=== PATIENT | female | born 1965 | race Caucasian/White ===

== ENCOUNTER 2019-01-18 16:09 | Emergency (ER) | payer BC, OTHER ==
--- NOTE | 2019-01-18 16:13 | ERPHSYRPT ---
- History of Present Illness Time Seen by Provider: 01/18/19 16:13 Historian: patient, family Exam Limitations: no limitations Physician History: 53 y/o iddm white female with htn out of her htn meds presents with mild central nonradiating substernal cp. onset this am. pt took one baby asa and no ntg. pt denies n/v/d. denies soa and denies abd pain. pt out of her lisinopril and metoprolol for 2 weeks. 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 Timing/Duration: today Activities at Onset: none Quality: sharpness Location: substernal, central Chest Pain Radiation: no radiation Severity of Pain-Max: mild Severity of Pain-Current: mild Associated Symptoms: denies symptoms Prior Chest Pain/Cardiac Workup: cardiac cath, echocardiography Nitro Today/Relief: no nitro taken today Aspirin Treatment Today: 81 mg x 1, provided at home Allergies/Adverse Reactions: No Known Drug Allergies Allergy (Unverified 01/18/19 16:23) Home Medications: Aspirin 81 gm Chew [Baby Aspirin 81 mg Chew] 81 mg DAILY 01/18/19 [History ] Insulin Lispro [Humalog] 1 unit DAILY 01/18/19 [History] Lisinopril 5 mg DAILY 01/18/19 [History] Metoprolol Succinate [Toprol Xl] 25 mg DAILY 01/18/19 [History] Ticagrelor [Brilinta] 60 mg DAILY 01/18/19 [History] - Review of Systems Constitutional: No Symptoms Eyes: No Symptoms Ears, Nose, & Throat: No Symptoms Respiratory: No Symptoms Cardiac: Chest Pain (mild) Abdominal/Gastrointestinal: No Symptoms Genitourinary Symptoms: No Symptoms Musculoskeletal: No Symptoms Skin: No Symptoms Neurological: No Symptoms Psychological: No Symptoms Endocrine: No Symptoms Hematologic/Lymphatic: No Symptoms Immunological/Allergic: No Symptoms All Other Systems: Reviewed and Negative - Past Medical History Pertinent Past Medical History: Yes Neurological History: No Pertinent History ENT History: No Pertinent History Cardiac History: Hypertension Respiratory History: No Pertinent History Endocrine Medical History: No Pertinent History Musculoskeletal History: No Pertinent History GI Medical History: No Pertinent History History: No Pertinent History Psycho-Social History: No Pertinent History Female Reproductive Disorders: No Pertinent History - Past Surgical History Past Surgical History: No Neuro Surgical History: No Pertinent History Cardiac: No Pertinent History Respiratory: No Pertinent History Gastrointestinal: No Pertinent History Genitourinary: No Pertinent History Musculoskeletal: No Pertinent History - Nursing Vital Signs Nursing Vital Signs: Initial Vital Signs Temperature 98.1 F 01/18/19 16:12 Pulse Rate 100 H 01/18/19 16:12 Respiratory Rate 14 01/18/19 16:12 Blood Pressure 154/81 01/18/19 16:12 O2 Sat by Pulse Oximetry 99 01/18/19 16:12 Pain Scale Pain Intensity 4 - Physical Exam General Appearance: no apparent distress, alert, anxiety Eye Exam: PERRL/EOMI Ears, Nose, Throat Exam: normal ENT inspection, moist mucous membranes Neck Exam: normal inspection, non-tender, supple, full range of motion Respiratory Exam: normal breath sounds, chest tenderness, lungs clear, airway intact, No respiratory distress Cardiovascular Exam: regular rate/rhythm, normal heart sounds, normal peripheral pulses Gastrointestinal/Abdomen Exam: soft, normal bowel sounds, No tenderness Pelvic Exam: not done Rectal Exam: not done Extremity Exam: normal inspection, normal range of motion, pelvis stable Neurologic Exam: alert, oriented x 3, cooperative, microcomputer support specialist II-XII nml as tested Skin Exam: normal color, warm, dry Lymphatic Exam: No adenopathy SpO2 Interpretation: normal O2 Delivery: Room Air - Course EKG Interpreted by Me: RATE (92), Sinus Rhythm, NORMAL AXIS, NORMAL INTERVALS, NORMAL QRS, Other (no comparison ekg) Ordered Tests: Active Orders 24 hr Category Date Time Status Environmental Geologist STAT Care 01/18/19 16:27 Active EKG-ER Only STAT Care 01/18/19 16:27 Active IV Insertion STAT Care 01/18/19 16:27 Active Pulse Oximetry (ED) STAT Care 01/18/19 16:27 Active CHEST 1 VIEW (PORTABLE) Stat Exams 01/18/19 16:27 Taken CBC W DIFF Stat Lab 01/18/19 16:23 Completed CMP Stat Lab 01/18/19 17:00 Completed D-DIMER QUANTITATION Stat Lab 01/18/19 17:00 Completed NT PRO BNP Stat Lab 01/18/19 17:00 Completed PROTIME WITH INR Stat Lab 01/18/19 17:00 Completed TROPONIN Q3H Lab 01/18/19 17:00 Completed TROPONIN Q3H Lab 01/18/19 19:30 Ordered TROPONIN Q3H Lab 01/18/19 22:30 Ordered TROPONIN Q3H Lab 01/19/19 01:30 Ordered TROPONIN Q3H Lab 01/19/19 04:30 Ordered Medication Summary Discontinued Medications Generic Name Dose Route Start Last Admin Trade Name Junaid PRN Reason Stop Dose Admin Aspirin 243 mg 01/18/19 16:27 01/18/19 16:43 Baby Aspirin 81 Mg Chew PO 01/18/19 16:28 243 mg STAT ONE Administration Aspirin Confirm 01/18/19 16:40 Baby Aspirin 81 Mg Chew Administered 01/18/19 16:41 Dose 243 mg .ROUTE .STK-MED ONE Lab/Rad Data: Laboratory Result Diagrams 01/18/19 16:23 01/18/19 17:00 Laboratory Results 01/18/19 01/18/19 01/18/19 Range/Units 17:00 17:00 17:00 WBC (4.0-10.5) K/mm3 RBC (4.1-5.4) M/mm3 Hgb (12.0-16.0) gm/dl Hct (35-47) % MCV (78-100) fl MCH (26-32) pg MCHC (32-36) g/dl RDW (11.5-14.0) % Plt Count (150-450) K/mm3 MPV (6-9.5) fl Gran % (36.0-66.0) % Eos # (Auto) (0-0.5) Absolute Lymphs (auto) (1.0-4.6) Absolute Monos (auto) (0.0-1.3) Lymphocytes % (24.0-44.0) % Monocytes % (0.0-12.0) % Eosinophils % (0.00-5.0) % Basophils % (0.0-0.4) % Absolute Granulocytes (1.4-6.9) Basophils # (0-0.4) PT 10.3 (9.95-12.35) SECONDS INR 0.91 (0.8-3.0) D-Dimer 453 (215-500) ng/mL Sodium 138 (137-145) mmol/L Potassium 4.4 (3.5-5.1) mmol/L Chloride 104 (98-107) mmol/L Carbon Dioxide 25 (22-30) mmol/L Anion Gap 13.9 (5-15) MEQ/L BUN 21 H (7-17) mg/dL Creatinine 0.58 (0.52-1.04) mg/dL Estimated GFR > 60.0 ML/MIN Glucose 323 H (74-106) mg/dL Calcium 10.3 H (8.4-10.2) mg/dL Total Bilirubin 0.30 (0.2-1.3) mg/dL AST 34 (14-36) U/L ALT 33 (0-35) U/L Alkaline Phosphatase 152 H (38-126) U/L Troponin I < 0.012 (0.000-0.034) ng/mL NT-Pro-B Natriuret Pep 312 (0-900) pg/mL Serum Total Protein 7.3 (6.3-8.2) g/dL Albumin 4.2 (3.5-5.0) g/dL 01/18/19 Range/Units 16:23 WBC 7.3 (4.0-10.5) K/mm3 RBC 4.48 (4.1-5.4) M/mm3 Hgb 13.9 (12.0-16.0) gm/dl Hct 41.0 (35-47) % MCV 91.5 (78-100) fl MCH 31.0 (26-32) pg MCHC 33.9 (32-36) g/dl RDW 13.2 (11.5-14.0) % Plt Count 246 (150-450) K/mm3 MPV 10.9 H (6-9.5) fl Gran % 62.0 (36.0-66.0) % Eos # (Auto) 0.22 (0-0.5) Absolute Lymphs (auto) 1.81 (1.0-4.6) Absolute Monos (auto) 0.72 (0.0-1.3) Lymphocytes % 24.7 (24.0-44.0) % Monocytes % 9.8 (0.0-12.0) % Eosinophils % 3.0 (0.00-5.0) % Basophils % 0.5 (0.0-0.4) % Absolute Granulocytes 4.55 (1.4-6.9) Basophils # 0.04 (0-0.4) PT (9.95-12.35) SECONDS INR (0.8-3.0) D-Dimer (215-500) ng/mL Sodium (137-145) mmol/L Potassium (3.5-5.1) mmol/L Chloride (98-107) mmol/L Carbon Dioxide (22-30) mmol/L Anion Gap (5-15) MEQ/L BUN (7-17) mg/dL Creatinine (0.52-1.04) mg/dL Estimated GFR ML/MIN Glucose (74-106) mg/dL Calcium (8.4-10.2) mg/dL Total Bilirubin (0.2-1.3) mg/dL AST (14-36) U/L ALT (0-35) U/L Alkaline Phosphatase (38-126) U/L Troponin I (0.000-0.034) ng/mL NT-Pro-B Natriuret Pep (0-900) pg/mL Serum Total Protein (6.3-8.2) g/dL Albumin (3.5-5.0) g/dL - Progress Air Movement: good Progress Note: 01/18/19 18:38 no acute process on cxr pt states she is much better. no cp. will give pt rx for one week lisinopril and metoprolol. Blood Culture(s) Obtained: No Antibiotics given: No Counseled pt/family regarding: lab results, diagnosis, need for follow-up, rad results - Departure Departure Disposition: Home Clinical Impression: Chest pain, Hyperglycemia Condition: Stable Critical Care Time: No Referrals: DIANA SUTTON [Primary Care Provider] - Additional Instructions: monitor and treat your blood glucose closely. follow up with your prescribing doctors on monday01/21/19 for further management Prescriptions: Lisinopril 5 mg [Zestril 5 MG] 5 mg PO DAILY #10 tablet Metoprolol Succinate 25 mg Xl* [Toprol-Xl 25MG Tablets] 25 mg PO DAILY #10 tab
[2019-01-18] MEDS ORDERED: BABY ASPIRIN 81 MG CHEW PO ONE (16:27)
[2019-01-18] MEDS ORDERED: BABY ASPIRIN 81 MG CHEW ONE (16:40)
[2019-01-18 17:39] LABS: INR 0.91 (0.8-3.0); PROTIME 10.3 SECONDS (9.95-12.35)
[2019-01-18 17:40] LABS: BASOPHIL % 0.5 % (0.0-0.4); Basophil (Absolute #) 0.04 (0-0.4); Eosinophil (Absolute #) 0.22 (0-0.5); Granulocyte Absolute (ANC) 4.55 (1.4-6.9); Hemoglobin 13.9 gm/dl (12.0-16.0); Lymphocyte (Absolute #) 1.81 (1.0-4.6); Lymphocytes % 24.7 % (24.0-44.0); Mean Cell Volume 91.5 fl (78-100); Mean Corpuscular Hgb Concent. 33.9 g/dl (32-36); Mean Platelet Volume 10.9 fl (6-9.5); Monocyte (Absolute #) 0.72 (0.0-1.3); Monocytes % 9.8 % (0.0-12.0); Platelet Count 246 K/mm3 (150-450); Red Blood Count 4.48 M/mm3 (4.1-5.4); Red Cell Distribution Width 13.2 % (11.5-14.0); White Blood Count 7.3 K/mm3 (4.0-10.5)
[2019-01-18 17:53] LABS: ALBUMIN 4.2 g/dL (3.5-5.0); ALKALINE PHOSPHATASE 152 U/L (38-126); ANION GAP 13.9 MEQ/L (5-15); BLOOD UREA NITROGEN 21 mg/dL (7-17); CHLORIDE 104 mmol/L (98-107); Calcium 10.3 mg/dL (8.4-10.2); Carbon Dioxide 25 mmol/L (22-30); Creatinine 1 0.58 mg/dL (0.52-1.04); Glucose 323 mg/dL (74-106); NT PRO BNP 312 pg/mL (0-900); Potassium 4.4 mmol/L (3.5-5.1); SGOT/AST 34 U/L (14-36); SGPT/ALT 33 U/L (0-35); SODIUM 138 mmol/L (137-145); Total Protein 7.3 g/dL (6.3-8.2)
[2019-01-18 19:01] VITALS: BP 136/71; PULSE 96; O2SAT 98
--- NOTE | 2019-01-18 22:54 | XRAY ---
Indication: Chest pain. Comparison: September 25, 2006. Portable chest demonstrates new multiple coronary stent grafts and aortic knob calcification. Remaining heart, lungs, and bony thorax unremarkable.
== END 2019-01-18 19:05 | disposition home or self-care (01) ==
LOC: ED 16:09
DX: R07.9 Chest pain, unspecified (principal); R73.9 Hyperglycemia, unspecified
CPT/HCPCS: 36000; 36415; 71045; 80053; 83880; 84484; 85025; 85379; 85610; 93005; 93041; 94760; 99284; A9270-GY

== ENCOUNTER 2020-01-31 14:00 | Emergency (ER) | payer OTHER ==
[2020-01-31] MEDS ORDERED: D50W 50 ml Abboject IV ONE ×2 (14:16→14:25)
[2020-01-31] MEDS ORDERED: Dextrose 5% -0.45 NaCl 1000 ML 1,000 ML IV ONE (14:24)
[2020-01-31 14:28] LABS: Lactic Acid 1.7 (0.4-2.0)
[2020-01-31] MEDS ORDERED: Dextrose 5% -0.45 NaCl 1000 ML 1,000 ML IV SCH (14:30)
--- NOTE | 2020-01-31 14:43 | ERPHSYRPT ---
- History of Present Illness Time Seen by Provider: 01/31/20 14:41 Source: patient Exam Limitations: no limitations Patient Subjective Stated Complaint: hypoglycemia Triage Nursing Assessment: pt to ED c/o hypoglycemia. states she grabbed wrong insulin pen this morning 0730 and gave self 32 units of insulin. pt reports blood sugars ranging 39-60s all day. 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 fsbs on arrival 60. pt denies hypoglycemic sx at this time. reports she has been taking sugar tabs and drinking mountain dew today. Physician History: Patient is an insulin-dependent diabetic who takes 32 units of long-acting insulin and then a sliding scale for rapid insulin short acting. Today by mistake she took 32 units of her short acting at 730. She has been drinking Mountain Dew's taking sugar tablets but feels as if her sugar remains low. Timing/Duration: today Severity: moderate Modifying Factors: Improves With: eating Associated Symptoms: weakness Allergies/Adverse Reactions: No Known Drug Allergies Allergy (Verified 01/31/20 14:21) Home Medications: Aspirin 81 gm Chew [Baby Aspirin 81 mg Chew] 81 mg DAILY 01/18/19 [History] Insulin Lispro [Humalog] 1 unit SQ DAILY 01/18/19 [History] Ticagrelor [Brilinta] 60 mg PO DAILY 01/18/19 [History] lisinopriL [Lisinopril] 5 mg PO DAILY 01/18/19 [History] Atorvastatin Calcium 80 mg PO DAILY 01/31/20 [History] Ranolazine [Ranolazine ER] 2,000 mg PO DAILY 01/31/20 [History] Hx Tetanus, Diphtheria Vaccination/Date Given: Yes Hx Influenza Vaccination/Date Given: Yes Hx Pneumococcal Vaccination/Date Given: Yes Immunizations Up to Date: Yes Travel Risk - International Travel Have you traveled outside of the country in past 3 weeks: No - Coronavirus Screening Are you exhibiting any of the following symptoms?: No Close contact with a COVID-19 positive Pt in past 14-21 Days: No - Review of Systems Constitutional: Weakness, No Fever, No Chills Eyes: No Symptoms Ears, Nose, & Throat: No Symptoms Respiratory: No Cough, No Dyspnea Cardiac: No Chest Pain, No Edema, No Syncope Abdominal/Gastrointestinal: No Abdominal Pain, No Nausea, No Vomiting, No Diarrhea Genitourinary Symptoms: No Dysuria Musculoskeletal: No Back Pain, No Neck Pain Skin: No Rash Neurological: No Dizziness, No Focal Weakness, No Sensory Changes Psychological: No Symptoms Endocrine: No Symptoms All Other Systems: Reviewed and Negative - Past Medical History Pertinent Past Medical History: Yes Neurological History: No Pertinent History ENT History: No Pertinent History Cardiac History: Coronary Artery Disease, Hypertension, Myocardial Infarction (ND), Other Respiratory History: No Pertinent History Endocrine Medical History: Diabetes Type I Musculoskeletal History: No Pertinent History GI Medical History: No Pertinent History History: No Pertinent History Psycho-Social History: No Pertinent History Female Reproductive Disorders: No Pertinent History Other Medical History: 8 cardiac stents stents, 6 MIs - September 2019. - Past Surgical History Past Surgical History: Yes Neuro Surgical History: No Pertinent History Cardiac: Cardiac Stent Respiratory: No Pertinent History Gastrointestinal: No Pertinent History Genitourinary: No Pertinent History Musculoskeletal: No Pertinent History Female Surgical History: Hysterectomy, Section - Social History Smoking Status: Current every day smoker How long have you smoked: years Exposure to second hand smoke: Yes Drug Use: none Patient Lives Alone: Yes - Female History Hx Now: No - Nursing Vital Signs Nursing Vital Signs: Initial Vital Signs Pulse Rate 80 01/31/20 15:18 Respiratory Rate 18 01/31/20 15:18 Blood Pressure 116/59 01/31/20 15:18 O2 Sat by Pulse Oximetry 99 01/31/20 15:18 Pain Scale Pain Intensity 0 - Physical Exam General Appearance: no apparent distress, alert Eye Exam: PERRL/EOMI, eyes nml inspection Ears, Nose, Throat Exam: normal ENT inspection, TMs normal, pharynx normal, moist mucous membranes Neck Exam: normal inspection, non-tender, supple, full range of motion Respiratory Exam: normal breath sounds, lungs clear, No respiratory distress Cardiovascular Exam: regular rate/rhythm, normal heart sounds, normal peripheral pulses Gastrointestinal/Abdomen Exam: soft, normal bowel sounds, No tenderness, No mass Back Exam: normal inspection, normal range of motion, No CVA tenderness, No vertebral tenderness Extremity Exam: normal inspection, normal range of motion, pelvis stable Neurologic Exam: alert, oriented x 3, cooperative, normal mood/affect, nml ce rebellar function, nml station & gait, sensation nml, No motor deficits Skin Exam: normal color, warm, dry, No rash Lymphatic Exam: No adenopathy SpO2 Interpretation: normal O2 Delivery: Room Air - Course Nursing assessment & vital signs reviewed: Yes EKG Interpreted by Me: RATE (84), Sinus Rhythm, NORMAL AXIS, NORMAL INTERVALS, N ORMAL QRS, Non-specific ST Changes, Other (Possible left atrial enlargement) Ordered Tests: Active Orders 24 hr Category Date Time Status EKG-ER Only STAT Care 01/31/20 14:16 Active CBC W DIFF Stat Lab 01/31/20 14:20 Completed CMP Stat Lab 01/31/20 14:20 Completed Glucose,Critical Care Urgent Lab 01/31/20 14:16 Completed Lactic Acid Urgent Lab 01/31/20 14:16 Completed MAGNESIUM Stat Lab 01/31/20 14:20 Completed UA W/RFX UR CULTURE Stat Lab 01/31/20 14:22 Ordered Medication Summary Generic Name Dose Route Start Last Admin Trade Name Freq PRN Reason Stop Dose Admin Dextrose/Sodium Chloride 1,000 mls @ 100 mls/hr 01/31/20 14:30 01/31/20 14:26 Dextrose 5% -0.45 Nacl 1000 Ml IV 03/01/20 14:29 100 mls/hr .Q10H ISIDRO Administration Discontinued Medications Generic Name Dose Route Start Last Admin Trade Name Freq PRN Reason Stop Dose Admin Dextrose 50 ml 01/31/20 14:16 01/31/20 14:26 D50w 50 Ml Abboject IV 01/31/20 14:17 50 ml STAT ONE Administration Dextrose Confirm 01/31/20 14:25 D50w 50 Ml Abboject Administered 01/31/20 14:26 Dose 50 ml IV .STVeeker-MED ONE Lab/Rad Data: Laboratory Result Diagrams 01/31/20 14:20 01/31/20 14:20 Laboratory Results 01/31/20 01/31/20 01/31/20 Range/Units 14:20 14:20 14:16 WBC 8.7 (4.0-10.5) K/mm3 RBC 4.66 (4.1-5.4) M/mm3 Hgb 14.2 (12.0-16.0) gm/dl Hct 43.0 (35-47) % MCV 92.3 (78-100) fl MCH 30.5 (26-32) pg MCHC 33.0 (32-36) g/dl RDW 13.6 (11.5-14.0) % Plt Count 260 (150-450) K/mm3 MPV 10.6 (7.5-11.0) fl Gran % 60.4 (36.0-66.0) % Eos # (Auto) 0.41 (0-0.5) Absolute Lymphs (auto) 2.07 (1.0-4.6) Absolute Monos (auto) 0.90 (0.0-1.3) Lymphocytes % 23.9 L (24.0-44.0) % Monocytes % 10.4 (0.0-12.0) % Eosinophils % 4.7 (0.00-5.0) % Basophils % 0.6 (0.0-0.4) % Absolute Granulocytes 5.24 (1.4-6.9) Basophils # 0.05 (0-0.4) Glucose 62 L 64 L (70-110) Sodium 137 (137-145) mmol/L Potassium 3.3 L (3.5-5.1) mmol/L Chloride 100 (98-107) mmol/L Carbon Dioxide 28 (22-30) mmol/L Anion Gap 12.3 (5-15) MEQ/L BUN 13 (7-17) mg/dL Creatinine 0.66 (0.52-1.04) mg/dL Estimated GFR > 60.0 ML/MIN Lactic Acid 1.7 (0.4-2.0) Calcium 10.0 (8.4-10.2) mg/dL Magnesium 1.9 (1.6-2.3) mg/dL Total Bilirubin 0.50 (0.2-1.3) mg/dL AST 27 (14-36) U/L ALT 22 (0-35) U/L Alkaline Phosphatase 109 (38-126) U/L Serum Total Protein 7.7 (6.3-8.2) g/dL Albumin 4.6 (3.5-5.0) g/dL - Progress Progress: improved - Departure Departure Disposition: Home Clinical Impression: Hypoglycemia Condition: Stable Critical Care Time: No Instructions: Low Blood Sugar, Adult (DC)
[2020-01-31 15:04] LABS: Absolute Neutrophil Ct (ANC) 5.24 (1.4-6.9); BASOPHIL % 0.6 % (0.0-0.4); Basophil (Absolute #) 0.05 (0-0.4); Eosinophil % 4.7 % (0.00-5.0); Eosinophil (Absolute #) 0.41 (0-0.5); Hemoglobin 14.2 gm/dl (12.0-16.0); Lymphocyte (Absolute #) 2.07 (1.0-4.6); Lymphocytes % 23.9 % (24.0-44.0); Mean Cell Volume 92.3 fl (78-100); Mean Corpuscular Hemoglobin 30.5 pg (26-32); Mean Platelet Volume 10.6 fl (7.5-11.0); Monocytes % 10.4 % (0.0-12.0); Neutrophil % 60.4 % (36.0-66.0); Platelet Count 260 K/mm3 (150-450); Red Blood Count 4.66 M/mm3 (4.1-5.4); Red Cell Distribution Width 13.6 % (11.5-14.0); White Blood Count 8.7 K/mm3 (4.0-10.5)
[2020-01-31 15:12] LABS: ALBUMIN 4.6 g/dL (3.5-5.0); ALKALINE PHOSPHATASE 109 U/L (38-126); ANION GAP 12.3 MEQ/L (5-15); BLOOD UREA NITROGEN 13 mg/dL (7-17); CHLORIDE 100 mmol/L (98-107); Carbon Dioxide 28 mmol/L (22-30); Creatinine 1 0.66 mg/dL (0.52-1.04); EST GLOMERULAR FILTRATION RATE > 60.0 ML/MIN; Glucose 62 mg/dL (74-106); MAGNESIUM 1.9 mg/dL (1.6-2.3); Potassium 3.3 mmol/L (3.5-5.1); SGOT/AST 27 U/L (14-36); SGPT/ALT 22 U/L (0-35); SODIUM 137 mmol/L (137-145); Total Protein 7.7 g/dL (6.3-8.2)
[2020-01-31 16:11] LABS: Appearance CLEAR (CLEAR); Bacteria RARE /HPF (NEGATIVE); Bilirubin NEGATIVE (NEGATIVE); Blood NEGATIVE Ery/ul (0-5); Glucose NEGATIVE (NEGATIVE); Ketones NEGATIVE (NEGATIVE); Leukocyte Esterase SMALL (NEGATIVE); Nitrite NEGATIVE (NEGATIVE); Protein,Urine Dip NEGATIVE (Negative); Specific Gravity 1.003 (1.005-1.025); Urobilinogen NEGATIVE mg/dL (0-1)
[2020-01-31 16:16] VITALS: BP 133/63
[2020-01-31 16:30] VITALS: PULSE 76; O2SAT 99
== END 2020-01-31 16:30 | disposition home or self-care (01) ==
LOC: ED 14:00
DX: E10.649 Type 1 diabetes mellitus with hypoglycemia without coma (principal); I10 Essential (primary) hypertension; I25.2 Old myocardial infarction
CPT/HCPCS: 36000; 36415; 80053; 81001; 82947; 83605; 83735; 85025; 93005; 96365; 96366; 96374; 99284

== ENCOUNTER 2020-06-24 06:14 | Observation (INO) | payer OTHER ==
--- NOTE | 2020-06-24 06:36 | ERPHSYRPT ---
<JULIA ORO - Last Filed: 06/24/20 06:59> - History of Present Illness Time Seen by Provider: 06/24/20 06:34 Historian: patient Exam Limitations: no limitations Patient Subjective Stated Complaint: pt states while sitting up drinking coffee she began to have rt side chest pain radiating to rt neck and jaw. states she was sweaty and had fluttering in her chest during the worst of the chest pain. states pain now is 1/10 and only in her rt jaw at this time. describes pain as a "huge dolores horse." Triage Nursing Assessment: pt alert and oriented, answers questions approp. skin warm and dry. arrive per ambulance and transfers to stretcher per self with no difficulty. respirations nonlabored with lungs cta. heart rate 90 on moniotr, sinus rhythm. peripheral pulses wnl. Physician History: Patient is a 54-year-old female type I diabetic, smoker, with 8 cardiac stents presents to our ED with complaints of chest pain started about 1 hour prior to arrival. Patient was at home drinking her coffee when the pain started. Patient describes chest pain as a charley horse sensation on the right side of her chest that radiates to her right jaw. Pain was constant. Pain was associated with diaphoresis. No vomiting. Symptoms were constant. Patient called 911. Patient received nitro and aspirin prior to arrival. Patient states her pain significantly improved after administration of nitroglycerin. Pain currently rated 1 out of 10. No associated trauma. No fever. Symptoms are mild to moderate in intensity. No specific worsening or improving factors. Patient voices no other complaints concerns at this time. Patient has been taking all medications as prescribed. Timing/Duration: today Activities at Onset: none Quality: aching Location: substernal Chest Pain Radiation: neck Severity of Pain-Max: moderate Severity of Pain-Current: mild Modifying Factors: Improves With: nitroglycerin Associated Symptoms: palpitations, diaphoresis Prior Chest Pain/Cardiac Workup: cardiac cath Nitro Today/Relief: 0.4 mg x 3 Aspirin Treatment Today: 81 mg x 4 Allergies/Adverse Reactions: No Known Drug Allergies Allergy (Verified 06/24/20 06:42) Home Medications: Aspirin 81 gm Chew [Baby Aspirin 81 mg Chew] 81 mg DAILY 01/18/19 [History] Insulin Lispro [Humalog] 1 unit SQ TID 01/18/19 [History] Atorvastatin Calcium 80 mg PO DAILY 01/31/20 [History] Ranolazine [Ranolazine ER] 2,000 mg PO DAILY 01/31/20 [History] Insulin Glargine,Hum.rec.anlog [Basaglar Delroyikpen U-100] 40 unit SQ DAILY 06/24/20 [History] Isosorbide Mononitrate 20 mg [monoKET 20 MG] 20 mg PO BID 06/24/20 [History] Hx Tetanus, Diphtheria Vaccination/Date Given: Yes Hx Influenza Vaccination/Date Given: Yes Hx Pneumococcal Vaccination/Date Given: Yes Immunizations Up to Date: Yes Travel Risk - International Travel Have you traveled outside of the country in past 3 weeks: No - Coronavirus Screening Are you exhibiting any of the following symptoms?: No Close contact with a COVID-19 positive Pt in past 14-21 Days: No - Review of Systems Constitutional: No Symptoms, No Fever, No Chills Eyes: No Symptoms Ears, Nose, & Throat: No Symptoms Respiratory: No Symptoms, No Cough, No Dyspnea Cardiac: No Symptoms, No Chest Pain, No Edema, No Syncope Abdominal/Gastrointestinal: No Symptoms, No Abdominal Pain, No Nausea, No Vomiting, No Diarrhea Genitourinary Symptoms: No Symptoms, No Dysuria Musculoskeletal: No Symptoms, No Back Pain, No Neck Pain Skin: No Symptoms, No Rash Neurological: No Symptoms, No Dizziness, No Focal Weakness, No Sensory Changes Psychological: No Symptoms Endocrine: No Symptoms Hematologic/Lymphatic: No Symptoms Immunological/Allergic: No Symptoms All Other Systems: Reviewed and Negative - Past Medical History Pertinent Past Medical History: Yes Neurological History: No Pertinent History ENT History: No Pertinent History Cardiac History: Coronary Artery Disease, Hypertension, Myocardial Infarction (GA), Other Respiratory History: No Pertinent History Endocrine Medical History: Diabetes Type I Musculoskeletal History: No Pertinent History GI Medical History: No Pertinent History History: No Pertinent History Psycho-Social History: No Pertinent History Female Reproductive Disorders: No Pertinent History Other Medical History: 8 cardiac stents stents, 6 MIs - September 2019. - Past Surgical History Past Surgical History: Yes Neuro Surgical History: No Pertinent History Cardiac: Cardiac Stent Respiratory: No Pertinent History Gastrointestinal: No Pertinent History Genitourinary: No Pertinent History Musculoskeletal: No Pertinent History Female Surgical History: Hysterectomy, Section - Social History Smoking Status: Current every day smoker How long have you smoked: 25yrs Exposure to second hand smoke: No Drug Use: none Patient Lives Alone: Yes - Female History Hx Last Menstrual Period: hyster - Physical Exam General Appearance: no apparent distress, alert Eye Exam: PERRL/EOMI, eyes nml inspection Ears, Nose, Throat Exam: normal ENT inspection, moist mucous membranes Neck Exam: normal inspection, non-tender, supple, full range of motion Respiratory Exam: normal breath sounds, lungs clear, No respiratory distress Cardiovascular Exam: regular rate/rhythm, normal heart sounds Gastrointestinal/Abdomen Exam: soft, No tenderness, No mass Back Exam: normal inspection, No CVA tenderness, No vertebral tenderness Extremity Exam: normal inspection, normal range of motion Neurologic Exam: alert, oriented x 3, cooperative, normal mood/affect, sensation nml, No motor deficits Skin Exam: normal color, warm, dry SpO2 Interpretation: normal SpO2: 100 O2 Delivery: Room Air - Course Nursing assessment & vital signs reviewed: Yes EKG Interpreted by Me: RATE (89), Sinus Rhythm, NORMAL AXIS, NORMAL INTERVALS - Progress Progress: improved Air Movement: fair Progress Note: 06/24/20 07:[address] Torres at 0700. Imaging and labs pending. Dr. Torres will make final disposition. Blood Culture(s) Obtained: No Antibiotics given: No Counseled pt/family regarding: lab results, diagnosis - Departure Clinical Impression: ACS (acute coronary syndrome) Condition: Stable Critical Care Time: No Referrals: DOCTOR,NO FAMILY [Primary Care Provider] - <NORBERTO TORRES - Last Filed: 06/24/20 08:18> - Nursing Vital Signs Nursing Vital Signs: Initial Vital Signs Pulse Rate 98 H 06/24/20 06:16 Respiratory Rate 16 06/24/20 06:16 Blood Pressure 154/84 06/24/20 06:16 O2 Sat by Pulse Oximetry 100 06/24/20 06:16 Pain Scale Pain Intensity 1 Ordered Tests: Active Orders 24 hr Category Date Time Status Natural Fabricator STAT Care 06/24/20 06:32 Active EKG-ER Only STAT Care 06/24/20 06:31 Active IV Insertion STAT Care 06/24/20 06:31 Active CHEST 1 VIEW (PORTABLE) Stat Exams 06/24/20 06:32 Taken CBC W DIFF Stat Lab 06/24/20 06:55 Completed CMP Stat Lab 06/24/20 06:55 Completed MAGNESIUM Stat Lab 06/24/20 06:55 Completed NT PRO BNP Stat Lab 06/24/20 06:55 Completed TROPONIN Q3H Lab 06/24/20 06:55 Completed TROPONIN Q3H Lab 06/24/20 09:45 Ordered TROPONIN Q3H Lab 06/24/20 12:45 Ordered TROPONIN Q3H Lab 06/24/20 15:45 Ordered TROPONIN Q3H Lab 06/24/20 18:45 Ordered UA W/RFX UR CULTURE Stat Lab 06/24/20 06:32 Ordered Transfer Order Routine Transfer 06/24/20 Ordered Lab/Rad Data: Laboratory Result Diagrams 06/24/20 06:55 06/24/20 06:55 Laboratory Results 06/24/20 06/24/20 06/24/20 Range/Units 06:55 06:55 06:55 WBC 7.1 (4.0-10.5) K/mm3 RBC 4.44 (4.1-5.4) M/mm3 Hgb 13.2 (12.0-16.0) gm/dl Hct 40.5 (35-47) % MCV 91.2 (78-100) fl MCH 29.7 (26-32) pg MCHC 32.6 (32-36) g/dl RDW 13.5 (11.5-14.0) % Plt Count 285 (150-450) K/mm3 MPV 9.5 (7.5-11.0) fl Gran % 62.3 (36.0-66.0) % Eos # (Auto) 0.14 (0-0.5) Absolute Lymphs (auto) 1.62 (1.0-4.6) Absolute Monos (auto) 0.86 (0.0-1.3) Lymphocytes % 22.9 L (24.0-44.0) % Monocytes % 12.2 H (0.0-12.0) % Eosinophils % 2.0 (0.00-5.0) % Basophils % 0.6 (0.0-0.4) % Absolute Granulocytes 4.40 (1.4-6.9) Basophils # 0.04 (0-0.4) Sodium 134 L (137-145) mmol/L Potassium 4.9 (3.5-5.1) mmol/L Chloride 99 (98-107) mmol/L Carbon Dioxide 28 (22-30) mmol/L Anion Gap 11.9 (5-15) MEQ/L BUN 18 H (7-17) mg/dL Creatinine 0.66 (0.52-1.04) mg/dL Estimated GFR > 60.0 ML/MIN Glucose 142 H (74-106) mg/dL Calcium 9.7 (8.4-10.2) mg/dL Magnesium 1.6 (1.6-2.3) mg/dL Total Bilirubin 0.40 (0.2-1.3) mg/dL AST 25 (14-36) U/L ALT 22 (0-35) U/L Alkaline Phosphatase 110 (38-126) U/L Troponin I < 0.012 (0.000-0.034) ng/mL NT-Pro-B Natriuret Pep 178 (0-900) pg/mL Serum Total Protein 6.7 (6.3-8.2) g/dL Albumin 3.9 (3.5-5.0) g/dL - Progress Progress: re-examined Air Movement: good Progress Note: 06/24/20 08:16 Patient is checked out to me at shift change from Dr. Oro with pending work-up. Patient presented with chest pain which started almost an hour prior to arrival. Patient is given aspirin and nitro by EMS, on my evaluation patient is chest pain-free. EKG did not show any acute ST elevations. Has negative initial troponins. Chest x-ray did not show any acute cardiopulmonary findings. Patient has history of type 1 diabetes mellitus and CAD with multiple stenting and hyperlipidemia. Patient has a high heart score, discussed with Dr. Ambriz and patient is being admitted for observation for chest pain rule out GA/ACS. 06/24/20 08:17 Discussed with : Brice Will see patient in: hospital (observation) Counseled pt/family regarding: rad results - Departure Departure Disposition: Observation
[2020-06-24 07:01] LABS: BASOPHIL % 0.6 % (0.0-0.4); Basophil (Absolute #) 0.04 (0-0.4); Eosinophil (Absolute #) 0.14 (0-0.5); Hematocrit 40.5 % (35-47); Hemoglobin 13.2 gm/dl (12.0-16.0); Lymphocyte (Absolute #) 1.62 (1.0-4.6); Lymphocytes % 22.9 % (24.0-44.0); Mean Cell Volume 91.2 fl (78-100); Mean Corpuscular Hemoglobin 29.7 pg (26-32); Mean Corpuscular Hgb Concent. 32.6 g/dl (32-36); Mean Platelet Volume 9.5 fl (7.5-11.0); Monocyte (Absolute #) 0.86 (0.0-1.3); Monocytes % 12.2 % (0.0-12.0); Neutrophil % 62.3 % (36.0-66.0); Platelet Count 285 K/mm3 (150-450); Red Blood Count 4.44 M/mm3 (4.1-5.4); Red Cell Distribution Width 13.5 % (11.5-14.0); White Blood Count 7.1 K/mm3 (4.0-10.5)
[2020-06-24 07:29] LABS: ALBUMIN 3.9 g/dL (3.5-5.0); ALKALINE PHOSPHATASE 110 U/L (38-126); BLOOD UREA NITROGEN 18 mg/dL (7-17); Calcium 9.7 mg/dL (8.4-10.2); Carbon Dioxide 28 mmol/L (22-30); Creatinine 1 0.66 mg/dL (0.52-1.04); EST GLOMERULAR FILTRATION RATE > 60.0 ML/MIN; Glucose 142 mg/dL (74-106); MAGNESIUM 1.6 mg/dL (1.6-2.3); NT PRO BNP 178 pg/mL (0-900); Potassium 4.9 mmol/L (3.5-5.1); SGOT/AST 25 U/L (14-36); SGPT/ALT 22 U/L (0-35); SODIUM 134 mmol/L (137-145); Total Protein 6.7 g/dL (6.3-8.2)
[2020-06-24 07:33] LABS: CHLORIDE 99 mmol/L (98-107)
[2020-06-24 07:34] LABS: ANION GAP 11.9 MEQ/L (5-15)
[2020-06-24] MEDS ORDERED: MORPHINE SULFATE 2 MG INJ IV PRN (09:13)
[2020-06-24] MEDS ORDERED: TYLENOL 325 MG PO PRN (09:13)
[2020-06-24] MEDS ORDERED: DUONEB 0.5-3 MG/3 ml Neb IH PRN (09:13)
[2020-06-24] MEDS: PROTONIX 40 MG IV IV SCH (10:13)
[2020-06-24] MEDS: Lantus Insulin SQ SCH (13:41)
[2020-06-24] MEDS: HUMALOG SQ PRN (16:33)
[2020-06-24 19:55] LABS: Appearance SLIGHTLY CLOUDY (CLEAR); Bacteria RARE /HPF (NEGATIVE); Bilirubin NEGATIVE (NEGATIVE); Blood NEGATIVE Ery/ul (0-5); Epithelial Cells RARE /HPF (FEW); Glucose >=500 mg/dL (NEGATIVE); Ketones NEGATIVE (NEGATIVE); Leukocyte Esterase SMALL (NEGATIVE); Mucus SLIGHT /HPF (NEGATIVE); Nitrite NEGATIVE (NEGATIVE); Protein,Urine Dip NEGATIVE (Negative); RBC 0-2 /HPF (0-2); Specific Gravity 1.022 (1.005-1.025); Urobilinogen NEGATIVE mg/dL (0-1)
[2020-06-24] MEDS: monoKET 20 MG PO SCH (22:02)
[2020-06-24] MEDS: Ranexa 500 MG PO SCH (22:02)
[2020-06-25 05:11] LABS: Absolute Neutrophil Ct (ANC) 4.85 (1.4-6.9); BASOPHIL % 0.4 % (0.0-0.4); Basophil (Absolute #) 0.03 (0-0.4); Eosinophil % 1.7 % (0.00-5.0); Eosinophil (Absolute #) 0.12 (0-0.5); Hematocrit 40.5 % (35-47); Hemoglobin 13.1 gm/dl (12.0-16.0); Lymphocyte (Absolute #) 1.52 (1.0-4.6); Lymphocytes % 21.3 % (24.0-44.0); Mean Cell Volume 91.2 fl (78-100); Mean Corpuscular Hemoglobin 29.5 pg (26-32); Mean Corpuscular Hgb Concent. 32.3 g/dl (32-36); Mean Platelet Volume 9.9 fl (7.5-11.0); Monocyte (Absolute #) 0.62 (0.0-1.3); Monocytes % 8.7 % (0.0-12.0); Neutrophil % 67.9 % (36.0-66.0); Platelet Count 262 K/mm3 (150-450); Red Blood Count 4.44 M/mm3 (4.1-5.4); Red Cell Distribution Width 13.4 % (11.5-14.0); White Blood Count 7.1 K/mm3 (4.0-10.5)
[2020-06-25 05:37] LABS: ALBUMIN 3.8 g/dL (3.5-5.0); ALKALINE PHOSPHATASE 99 U/L (38-126); ANION GAP 11.2 MEQ/L (5-15); BLOOD UREA NITROGEN 13 mg/dL (7-17); CHLORIDE 102 mmol/L (98-107); Calcium 9.4 mg/dL (8.4-10.2); Carbon Dioxide 26 mmol/L (22-30); Creatinine 1 0.57 mg/dL (0.52-1.04); EST GLOMERULAR FILTRATION RATE > 60.0 ML/MIN; Glucose 243 mg/dL (74-106); Potassium 4.3 mmol/L (3.5-5.1); SGOT/AST 24 U/L (14-36); SGPT/ALT 20 U/L (0-35); SODIUM 134 mmol/L (137-145); Total Protein 6.6 g/dL (6.3-8.2)
[2020-06-25] MEDS: PROTONIX 40 MG IV IV SCH (09:44)
[2020-06-25] MEDS: monoKET 20 MG PO SCH (09:44)
[2020-06-25] MEDS: Ranexa 500 MG PO SCH (09:44)
[2020-06-25] MEDS: Lantus Insulin SQ SCH (09:50)
[2020-06-25] MEDS ORDERED: RANOLAZINE 2000 MG PO SCH (10:00)
[2020-06-25] MEDS ORDERED: PLAVIX 75 MG Tablet PO SCH (10:00)
[2020-06-25] MEDS ORDERED: NON-FORMULARY ITEM (Insulin Glargine,Hum.Rec.Anlog [Basaglar Kwikpen U-100] 40 UNIT) SQ SCH (10:00)
[2020-06-25] MEDS ORDERED: ZOCOR 20MG PO SCH (10:00)
[2020-06-25] MEDS ORDERED: NON-FORMULARY ITEM (Atorvastatin Calcium [Atorvastatin Calcium] 80 MG) PO SCH (10:00)
[2020-06-25] MEDS ORDERED: Ranexa 500 MG PO SCH (10:00)
[2020-06-25] MEDS ORDERED: ECOTRIN 81 MG PO SCH (10:00)
[2020-06-25 12:04] VITALS: BP 111/62; PULSE 77; O2SAT 99
--- NOTE | 2020-06-25 12:06 | XRAY ---
Indication: Chest pain. Patient states right upper chest mass but is not palpable today. Multiple contiguous axial images obtained through the chest using 80 cc Isovue 370 contrast. Comparison: None Lungs are inflated and clear. Heart is not enlarged and demonstrates extensive coronary calcifications. Aorta demonstrates mild calcifications without aneurysm/dissection. No pathologic mediastinal/hilar lymphadenopathy. Bony thorax intact. No focal solid/cystic chest wall mass or axillary lymphadenopathy. Limited upper abdomen including adrenal glands are unremarkable. Impression: 1. Scattered arteriosclerotic disease, greatest involving the coronary arteries. 2. Remaining CT chest with contrast exam is negative.
--- NOTE | 2020-06-25 12:09 | PCM.SSS ---
History of Present Illness - Chief Complaint Chief Complaint: Chest pain R/O. Date: 06/25/20 History of Present Illness: is a 54 year old female seen and examined this am following ER admission for chest pain. Patient reports that she started with chest pain yesterday at about 5 am. She reports that she has had similar episodes in the past. She describes the pain as a "charley horse" that was in her right side of neck and R upper chest area. She reports that the chest pain has resolved but she still feels what she describes bruising in her neck and r upper chest. Patient 9 Medications & Allergies Home Medications: Home Medication List Aspirin 81 gm Chew [Baby Aspirin 81 mg Chew] 81 mg PO DAILY 01/18/19 [History Confirmed 06/24/20] Insulin Lispro [Humalog] 1 unit SQ TID 01/18/19 [History Confirmed 06/24/20] Atorvastatin Calcium 80 mg PO DAILY 01/31/20 [History Confirmed 06/24/20] Ranolazine [Ranolazine ER] 2,000 mg PO DAILY 01/31/20 [History Confirmed 06/24/20] Clopidogrel Bisulfate 75 mg [PLAVIX 75 MG Tablet] 75 mg PO DAILY 06/24/20 [History Confirmed 06/24/20] Insulin Glargine,Hum.rec.anlog [Basaglar Kwikpen U-100] 40 unit SQ DAILY 06/24/20 [History Confirmed 06/24/20] Isosorbide Mononitrate 20 mg [monoKET 20 MG] 20 mg PO BID 06/24/20 [History Confirmed 06/24/20] PARoxetine HCl [Paxil] 10 mg PO QAM 30 Days #30 tablet 06/25/20 [Rx] Allergies/Adverse Reactions: Allergies Allergy/AdvReac Type Severity Reaction Status Date / Time No Known Drug Allergies Allergy Verified 06/24/20 06:42 - Past Medical History Past Medical History: Yes Neurological History: No Pertinent History ENT History: No Pertinent History Cardiac History: Coronary Artery Disease, Hypertension, Myocardial Infarction ([place]), Other Respiratory History: No Pertinent History Endocrine Medical History: Diabetes Type I Musculoskelatal History: No Pertinent History GI Medical History: No Pertinent History History: No Pertinent History Pyscho-Social History: No Pertinent History Reproductive Disorders: No Pertinent History Comment: 8 cardiac stents stents, 6 MIs - September 2019. Total 11 [place] - Female History Hx Last Menstrual Period: hyster Are you now?: No - Past Surgical History Past Surgical History: Yes Neuro Surgical History: No Pertinent History Cardiac History: Cardiac Stent Respiratory Surgery: No Pertinent History GI Surgical History: No Pertinent History Genitourinary Surgical Hx: No Pertinent History Musculskeletal Surgical Hx: No Pertinent History Female Surgical History: Hysterectomy, Section - Social History Smoking Status: Current every day smoker How long have you smoked: 25 yrs Exposure to second hand smoke: No Alcohol: None Drug Use: none - Physical Exam Vital Signs: Vital Signs - 24 hr Temp Pulse Resp BP Pulse Ox 06/25/20 08:00 97.9 F 84 16 157/74 98 06/25/20 03:59 98.3 F 80 18 116/56 97 06/25/20 00:00 98.1 F 79 12 121/63 98 06/24/20 20:00 98.2 F 78 16 132/59 97 06/24/20 15:57 98.0 F 86 16 120/58 97 Results - Labs Lab/Micro Results: Lab Results-Last 24 Hours 06/24/20 06/24/20 06/24/20 Range/Units 10:00 12:00 13:05 WBC (4.0-10.5) K/mm3 RBC (4.1-5.4) M/mm3 Hgb (12.0-16.0) gm/dl Hct (35-47) % MCV (78-100) fl MCH (26-32) pg MCHC (32-36) g/dl RDW (11.5-14.0) % Plt Count (150-450) K/mm3 MPV (7.5-11.0) fl Gran % (36.0-66.0) % Eos # (Auto) (0-0.5) Absolute Lymphs (auto) (1.0-4.6) Absolute Monos (auto) (0.0-1.3) Lymphocytes % (24.0-44.0) % Monocytes % (0.0-12.0) % Eosinophils % (0.00-5.0) % Basophils % (0.0-0.4) % Absolute Granulocytes (1.4-6.9) Basophils # (0-0.4) Sodium (137-145) mmol/L Potassium (3.5-5.1) mmol/L Chloride (98-107) mmol/L Carbon Dioxide (22-30) mmol/L Anion Gap (5-15) MEQ/L BUN (7-17) mg/dL Creatinine (0.52-1.04) mg/dL Estimated GFR ML/MIN Glucose (74-106) mg/dL POC Glucometer 175 H (74 to 106) mg/dL Hemoglobin A1c 9.06 H (4.5-6.0) % Calcium (8.4-10.2) mg/dL Total Bilirubin (0.2-1.3) mg/dL AST (14-36) U/L ALT (0-35) U/L Alkaline Phosphatase (38-126) U/L Troponin I < 0.012 (0.000-0.034) ng/mL Serum Total Protein (6.3-8.2) g/dL Albumin (3.5-5.0) g/dL Urine Color (YELLOW) Urine Appearance (CLEAR) Urine pH (5-6) Ur Specific [place] (1.005-1.025) Urine Protein (Negative) Urine Ketones (NEGATIVE) Urine Blood (0-5) Garrison/ul Urine Nitrite (NEGATIVE) Urine Bilirubin (NEGATIVE) Urine Urobilinogen (0-1) mg/dL Ur Leukocyte Esterase (NEGATIVE) Urine WBC (Auto) (0-5) /HPF Urine RBC (Auto) (0-2) /HPF U Epithel Cells (Auto) (FEW) /HPF Urine Bacteria (Auto) (NEGATIVE) /HPF Urine Mucus (Auto) (NEGATIVE) /HPF Urine Culture Reflexed (NO) Urine Glucose (NEGATIVE) mg/dL 06/24/20 06/24/20 06/24/20 Range/Units 15:35 16:06 17:00 WBC (4.0-10.5) K/mm3 RBC (4.1-5.4) M/mm3 Hgb (12.0-16.0) gm/dl Hct (35-47) % MCV (78-100) fl MCH (26-32) pg MCHC (32-36) g/dl RDW (11.5-14.0) % Plt Count (150-450) K/mm3 MPV (7.5-11.0) fl Gran % (36.0-66.0) % Eos # (Auto) (0-0.5) Absolute Lymphs (auto) (1.0-4.6) Absolute Monos (auto) (0.0-1.3) Lymphocytes % (24.0-44.0) % Monocytes % (0.0-12.0) % Eosinophils % (0.00-5.0) % Basophils % (0.0-0.4) % Absolute Granulocytes (1.4-6.9) Basophils # (0-0.4) Sodium (137-145) mmol/L Potassium (3.5-5.1) mmol/L Chloride (98-107) mmol/L Carbon Dioxide (22-30) mmol/L Anion Gap (5-15) MEQ/L BUN (7-17) mg/dL Creatinine (0.52-1.04) mg/dL Estimated GFR ML/MIN Glucose (74-106) mg/dL POC Glucometer 410 H (74 to 106) mg/dL Hemoglobin A1c (4.5-6.0) % Calcium (8.4-10.2) mg/dL Total Bilirubin (0.2-1.3) mg/dL AST (14-36) U/L ALT (0-35) U/L Alkaline Phosphatase (38-126) U/L Troponin I < 0.012 (0.000-0.034) ng/mL Serum Total Protein (6.3-8.2) g/dL Albumin (3.5-5.0) g/dL Urine Color YELLOW (YELLOW) Urine Appearance SLIGHTLY CLOUDY (CLEAR) Urine pH 6.0 (5-6) Ur Specific [place] 1.022 (1.005-1.025) Urine Protein NEGATIVE (Negative) Urine Ketones NEGATIVE (NEGATIVE) Urine Blood NEGATIVE (0-5) Garrison/ul Urine Nitrite NEGATIVE (NEGATIVE) Urine Bilirubin NEGATIVE (NEGATIVE) Urine Urobilinogen NEGATIVE (0-1) mg/dL Ur Leukocyte Esterase SMALL (NEGATIVE) Urine WBC (Auto) 16-25 (0-5) /HPF Urine RBC (Auto) 0-2 (0-2) /HPF U Epithel Cells (Auto) RARE (FEW) /HPF Urine Bacteria (Auto) RARE (NEGATIVE) /HPF Urine Mucus (Auto) SLIGHT (NEGATIVE) /HPF Urine Culture Reflexed YES (NO) Urine Glucose >=500 (NEGATIVE) mg/dL 06/24/20 06/24/20 06/25/20 Range/Units 19:05 21:44 04:40 WBC 7.1 (4.0-10.5) K/mm3 RBC 4.44 (4.1-5.4) M/mm3 Hgb 13.1 (12.0-16.0) gm/dl Hct 40.5 (35-47) % MCV 91.2 (78-100) fl MCH 29.5 (26-32) pg MCHC 32.3 (32-36) g/dl RDW 13.4 (11.5-14.0) % Plt Count 262 (150-450) K/mm3 MPV 9.9 (7.5-11.0) fl Gran % 67.9 H (36.0-66.0) % Eos # (Auto) 0.12 (0-0.5) Absolute Lymphs (auto) 1.52 (1.0-4.6) Absolute Monos (auto) 0.62 (0.0-1.3) Lymphocytes % 21.3 L (24.0-44.0) % Monocytes % 8.7 (0.0-12.0) % Eosinophils % 1.7 (0.00-5.0) % Basophils % 0.4 (0.0-0.4) % Absolute Granulocytes 4.85 (1.4-6.9) Basophils # 0.03 (0-0.4) Sodium (137-145) mmol/L Potassium (3.5-5.1) mmol/L Chloride (98-107) mmol/L Carbon Dioxide (22-30) mmol/L Anion Gap (5-15) MEQ/L BUN (7-17) mg/dL Creatinine (0.52-1.04) mg/dL Estimated GFR ML/MIN Glucose (74-106) mg/dL POC Glucometer 95 (74 to 106) mg/dL Hemoglobin A1c (4.5-6.0) % Calcium (8.4-10.2) mg/dL Total Bilirubin (0.2-1.3) mg/dL AST (14-36) U/L ALT (0-35) U/L Alkaline Phosphatase (38-126) U/L Troponin I < 0.012 (0.000-0.034) ng/mL Serum Total Protein (6.3-8.2) g/dL Albumin (3.5-5.0) g/dL Urine Color (YELLOW) Urine Appearance (CLEAR) Urine pH (5-6) Ur Specific [place] (1.005-1.025) Urine Protein (Negative) Urine Ketones (NEGATIVE) Urine Blood (0-5) Garrison/ul Urine Nitrite (NEGATIVE) Urine Bilirubin (NEGATIVE) Urine Urobilinogen (0-1) mg/dL Ur Leukocyte Esterase (NEGATIVE) Urine WBC (Auto) (0-5) /HPF Urine RBC (Auto) (0-2) /HPF U Epithel Cells (Auto) (FEW) /HPF Urine Bacteria (Auto) (NEGATIVE) /HPF Urine Mucus (Auto) (NEGATIVE) /HPF Urine Culture Reflexed (NO) Urine Glucose (NEGATIVE) mg/dL 06/25/20 06/25/20 06/25/20 Range/Units 04:40 06:56 11:29 WBC (4.0-10.5) K/mm3 RBC (4.1-5.4) M/mm3 Hgb (12.0-16.0) gm/dl Hct (35-47) % MCV (78-100) fl MCH (26-32) pg MCHC (32-36) g/dl RDW (11.5-14.0) % Plt Count (150-450) K/mm3 MPV (7.5-11.0) fl Gran % (36.0-66.0) % Eos # (Auto) (0-0.5) Absolute Lymphs (auto) (1.0-4.6) Absolute Monos (auto) (0.0-1.3) Lymphocytes % (24.0-44.0) % Monocytes % (0.0-12.0) % Eosinophils % (0.00-5.0) % Basophils % (0.0-0.4) % Absolute Granulocytes (1.4-6.9) Basophils # (0-0.4) Sodium 134 L (137-145) mmol/L Potassium 4.3 (3.5-5.1) mmol/L Chloride 102 (98-107) mmol/L Carbon Dioxide 26 (22-30) mmol/L Anion Gap 11.2 (5-15) MEQ/L BUN 13 (7-17) mg/dL Creatinine 0.57 (0.52-1.04) mg/dL Estimated GFR > 60.0 ML/MIN Glucose 243 H (74-106) mg/dL POC Glucometer 190 H 331 H (74 to 106) mg/dL Hemoglobin A1c (4.5-6.0) % Calcium 9.4 (8.4-10.2) mg/dL Total Bilirubin 0.30 (0.2-1.3) mg/dL AST 24 (14-36) U/L ALT 20 (0-35) U/L Alkaline Phosphatase 99 (38-126) U/L Troponin I (0.000-0.034) ng/mL Serum Total Protein 6.6 (6.3-8.2) g/dL Albumin 3.8 (3.5-5.0) g/dL Urine Color (YELLOW) Urine Appearance (CLEAR) Urine pH (5-6) Ur Specific [place] (1.005-1.025) Urine Protein (Negative) Urine Ketones (NEGATIVE) Urine Blood (0-5) Garrison/ul Urine Nitrite (NEGATIVE) Urine Bilirubin (NEGATIVE) Urine Urobilinogen (0-1) mg/dL Ur Leukocyte Esterase (NEGATIVE) Urine WBC (Auto) (0-5) /HPF Urine RBC (Auto) (0-2) /HPF U Epithel Cells (Auto) (FEW) /HPF Urine Bacteria (Auto) (NEGATIVE) /HPF Urine Mucus (Auto) (NEGATIVE) /HPF Urine Culture Reflexed (NO) Urine Glucose (NEGATIVE) mg/dL Accuchecks Date 06/25/20 Date 06/24/20 Date 06/24/20 Date 06/24/20 Time 06:56 Time 16:32 Time 16:32 Time 16:09 - Radiology Impressions Radiology Exams & Impressions: Radiology Procedures Category Date Time Status CHEST 1 VIEW (PORTABLE) Stat Exams 06/24/20 06:32 Taken CHEST WITH CONTRAST [CT] Urgent Exams 06/25/20 09:08 Taken Hospital Summary - Vitals & Intake/Output Vital Signs: Vital Signs Temperature 97.9 F 06/25/20 08:00 Pulse Rate 84 06/25/20 08:00 Respiratory Rate 16 06/25/20 08:00 Blood Pressure 157/74 06/25/20 08:00 O2 Sat by Pulse Oximetry 98 06/25/20 08:00 Intake & Output: Intake & Output 06/23/20 06/24/20 06/25/20 06/26/20 11:59 11:59 11:59 11:59 Intake Total 2080 Output Total 250 Balance 1830 Weight 54.4 kg 54.5 kg - Lab Result Diagrams: 06/25/20 04:40 06/25/20 04:40 Lab Results-Last 24 Hrs: Lab Results-Last 24 Hours 06/24/20 06/24/20 06/24/20 Range/Units 10:00 12:00 13:05 WBC (4.0-10.5) K/mm3 RBC (4.1-5.4) M/mm3 Hgb (12.0-16.0) gm/dl Hct (35-47) % MCV (78-100) fl MCH (26-32) pg MCHC (32-36) g/dl RDW (11.5-14.0) % Plt Count (150-450) K/mm3 MPV (7.5-11.0) fl Gran % (36.0-66.0) % Eos # (Auto) (0-0.5) Absolute Lymphs (auto) (1.0-4.6) Absolute Monos (auto) (0.0-1.3) Lymphocytes % (24.0-44.0) % Monocytes % (0.0-12.0) % Eosinophils % (0.00-5.0) % Basophils % (0.0-0.4) % Absolute Granulocytes (1.4-6.9) Basophils # (0-0.4) Sodium (137-145) mmol/L Potassium (3.5-5.1) mmol/L Chloride (98-107) mmol/L Carbon Dioxide (22-30) mmol/L Anion Gap (5-15) MEQ/L BUN (7-17) mg/dL Creatinine (0.52-1.04) mg/dL Estimated GFR ML/MIN Glucose (74-106) mg/dL POC Glucometer 175 H (74 to 106) mg/dL Hemoglobin A1c 9.06 H (4.5-6.0) % Calcium (8.4-10.2) mg/dL Total Bilirubin (0.2-1.3) mg/dL AST (14-36) U/L ALT (0-35) U/L Alkaline Phosphatase (38-126) U/L Troponin I < 0.012 (0.000-0.034) ng/mL Serum Total Protein (6.3-8.2) g/dL Albumin (3.5-5.0) g/dL Urine Color (YELLOW) Urine Appearance (CLEAR) Urine pH (5-6) Ur Specific [place] (1.005-1.025) Urine Protein (Negative) Urine Ketones (NEGATIVE) Urine Blood (0-5) Garrison/ul Urine Nitrite (NEGATIVE) Urine Bilirubin (NEGATIVE) Urine Urobilinogen (0-1) mg/dL Ur Leukocyte Esterase (NEGATIVE) Urine WBC (Auto) (0-5) /HPF Urine RBC (Auto) (0-2) /HPF U Epithel Cells (Auto) (FEW) /HPF Urine Bacteria (Auto) (NEGATIVE) /HPF Urine Mucus (Auto) (NEGATIVE) /HPF Urine Culture Reflexed (NO) Urine Glucose (NEGATIVE) mg/dL 06/24/20 06/24/20 06/24/20 Range/Units 15:35 16:06 17:00 WBC (4.0-10.5) K/mm3 RBC (4.1-5.4) M/mm3 Hgb (12.0-16.0) gm/dl Hct (35-47) % MCV (78-100) fl MCH (26-32) pg MCHC (32-36) g/dl RDW (11.5-14.0) % Plt Count (150-450) K/mm3 MPV (7.5-11.0) fl Gran % (36.0-66.0) % Eos # (Auto) (0-0.5) Absolute Lymphs (auto) (1.0-4.6) Absolute Monos (auto) (0.0-1.3) Lymphocytes % (24.0-44.0) % Monocytes % (0.0-12.0) % Eosinophils % (0.00-5.0) % Basophils % (0.0-0.4) % Absolute Granulocytes (1.4-6.9) Basophils # (0-0.4) Sodium (137-145) mmol/L Potassium (3.5-5.1) mmol/L Chloride (98-107) mmol/L Carbon Dioxide (22-30) mmol/L Anion Gap (5-15) MEQ/L BUN (7-17) mg/dL Creatinine (0.52-1.04) mg/dL Estimated GFR ML/MIN Glucose (74-106) mg/dL POC Glucometer 410 H (74 to 106) mg/dL Hemoglobin A1c (4.5-6.0) % Calcium (8.4-10.2) mg/dL Total Bilirubin (0.2-1.3) mg/dL AST (14-36) U/L ALT (0-35) U/L Alkaline Phosphatase (38-126) U/L Troponin I < 0.012 (0.000-0.034) ng/mL Serum Total Protein (6.3-8.2) g/dL Albumin (3.5-5.0) g/dL Urine Color YELLOW (YELLOW) Urine Appearance SLIGHTLY CLOUDY (CLEAR) Urine pH 6.0 (5-6) Ur Specific [place] 1.022 (1.005-1.025) Urine Protein NEGATIVE (Negative) Urine Ketones NEGATIVE (NEGATIVE) Urine Blood NEGATIVE (0-5) Garrison/ul Urine Nitrite NEGATIVE (NEGATIVE) Urine Bilirubin NEGATIVE (NEGATIVE) Urine Urobilinogen NEGATIVE (0-1) mg/dL Ur Leukocyte Esterase SMALL (NEGATIVE) Urine WBC (Auto) 16-25 (0-5) /HPF Urine RBC (Auto) 0-2 (0-2) /HPF U Epithel Cells (Auto) RARE (FEW) /HPF Urine Bacteria (Auto) RARE (NEGATIVE) /HPF Urine Mucus (Auto) SLIGHT (NEGATIVE) /HPF Urine Culture Reflexed YES (NO) Urine Glucose >=500 (NEGATIVE) mg/dL 06/24/20 06/24/20 06/25/20 Range/Units 19:05 21:44 04:40 WBC 7.1 (4.0-10.5) K/mm3 RBC 4.44 (4.1-5.4) M/mm3 Hgb 13.1 (12.0-16.0) gm/dl Hct 40.5 (35-47) % MCV 91.2 (78-100) fl MCH 29.5 (26-32) pg MCHC 32.3 (32-36) g/dl RDW 13.4 (11.5-14.0) % Plt Count 262 (150-450) K/mm3 MPV 9.9 (7.5-11.0) fl Gran % 67.9 H (36.0-66.0) % Eos # (Auto) 0.12 (0-0.5) Absolute Lymphs (auto) 1.52 (1.0-4.6) Absolute Monos (auto) 0.62 (0.0-1.3) Lymphocytes % 21.3 L (24.0-44.0) % Monocytes % 8.7 (0.0-12.0) % Eosinophils % 1.7 (0.00-5.0) % Basophils % 0.4 (0.0-0.4) % Absolute Granulocytes 4.85 (1.4-6.9) Basophils # 0.03 (0-0.4) Sodium (137-145) mmol/L Potassium (3.5-5.1) mmol/L Chloride (98-107) mmol/L Carbon Dioxide (22-30) mmol/L Anion Gap (5-15) MEQ/L BUN (7-17) mg/dL Creatinine (0.52-1.04) mg/dL Estimated GFR ML/MIN Glucose (74-106) mg/dL POC Glucometer 95 (74 to 106) mg/dL Hemoglobin A1c (4.5-6.0) % Calcium (8.4-10.2) mg/dL Total Bilirubin (0.2-1.3) mg/dL AST (14-36) U/L ALT (0-35) U/L Alkaline Phosphatase (38-126) U/L Troponin I < 0.012 (0.000-0.034) ng/mL Serum Total Protein (6.3-8.2) g/dL Albumin (3.5-5.0) g/dL Urine Color (YELLOW) Urine Appearance (CLEAR) Urine pH (5-6) Ur Specific [place] (1.005-1.025) Urine Protein (Negative) Urine Ketones (NEGATIVE) Urine Blood (0-5) Garrison/ul Urine Nitrite (NEGATIVE) Urine Bilirubin (NEGATIVE) Urine Urobilinogen (0-1) mg/dL Ur Leukocyte Esterase (NEGATIVE) Urine WBC (Auto) (0-5) /HPF Urine RBC (Auto) (0-2) /HPF U Epithel Cells (Auto) (FEW) /HPF Urine Bacteria (Auto) (NEGATIVE) /HPF Urine Mucus (Auto) (NEGATIVE) /HPF Urine Culture Reflexed (NO) Urine Glucose (NEGATIVE) mg/dL 06/25/20 06/25/20 06/25/20 Range/Units 04:40 06:56 11:29 WBC (4.0-10.5) K/mm3 RBC (4.1-5.4) M/mm3 Hgb (12.0-16.0) gm/dl Hct (35-47) % MCV (78-100) fl MCH (26-32) pg MCHC (32-36) g/dl RDW (11.5-14.0) % Plt Count (150-450) K/mm3 MPV (7.5-11.0) fl Gran % (36.0-66.0) % Eos # (Auto) (0-0.5) Absolute Lymphs (auto) (1.0-4.6) Absolute Monos (auto) (0.0-1.3) Lymphocytes % (24.0-44.0) % Monocytes % (0.0-12.0) % Eosinophils % (0.00-5.0) % Basophils % (0.0-0.4) % Absolute Granulocytes (1.4-6.9) Basophils # (0-0.4) Sodium 134 L (137-145) mmol/L Potassium 4.3 (3.5-5.1) mmol/L Chloride 102 (98-107) mmol/L Carbon Dioxide 26 (22-30) mmol/L Anion Gap 11.2 (5-15) MEQ/L BUN 13 (7-17) mg/dL Creatinine 0.57 (0.52-1.04) mg/dL Estimated GFR > 60.0 ML/MIN Glucose 243 H (74-106) mg/dL POC Glucometer 190 H 331 H (74 to 106) mg/dL Hemoglobin A1c (4.5-6.0) % Calcium 9.4 (8.4-10.2) mg/dL Total Bilirubin 0.30 (0.2-1.3) mg/dL AST 24 (14-36) U/L ALT 20 (0-35) U/L Alkaline Phosphatase 99 (38-126) U/L Troponin I (0.000-0.034) ng/mL Serum Total Protein 6.6 (6.3-8.2) g/dL Albumin 3.8 (3.5-5.0) g/dL Urine Color (YELLOW) Urine Appearance (CLEAR) Urine pH (5-6) Ur Specific [place] (1.005-1.025) Urine Protein (Negative) Urine Ketones (NEGATIVE) Urine Blood (0-5) Garrison/ul Urine Nitrite (NEGATIVE) Urine Bilirubin (NEGATIVE) Urine Urobilinogen (0-1) mg/dL Ur Leukocyte Esterase (NEGATIVE) Urine WBC (Auto) (0-5) /HPF Urine RBC (Auto) (0-2) /HPF U Epithel Cells (Auto) (FEW) /HPF Urine Bacteria (Auto) (NEGATIVE) /HPF Urine Mucus (Auto) (NEGATIVE) /HPF Urine Culture Reflexed (NO) Urine Glucose (NEGATIVE) mg/dL Micro Results-Entire Visit: Accuchecks Date 06/25/20 Date 06/24/20 Date 06/24/20 Date 06/24/20 Time 06:56 Time 16:32 Time 16:32 Time 16:09 - Radiology Exams Ordered Rad Exams-Entire Visit: Radiology Procedures Category Date Time Status CHEST 1 VIEW (PORTABLE) Stat Exams 06/24/20 06:32 Taken CHEST WITH CONTRAST [CT] Urgent Exams 06/25/20 09:08 Taken - Procedures and Test Procedures and Tests throughout Hospitalization: Therapy Orders & Screens 06/24/20 09:28 Smoking Cessation Education ONCE Comment: Diagnosis: Chest pain rule out [place] Smoking Status: Current every day smoker How long have you smoked: 25yrs Do you dip or chew tobacco: No 06/24/20 10:46 OT Screen per Nursing Assess ONCE Comment: Protocol Order Physician Instructions: Greater than 3 points order OT Admission Screening Reason For Exam: Triggered on Admission Diagnosis: Chest pain R/O. Open Wound/Cellutlitis/Pressure Ulcers: No Acute Fx/ORIF/Change in wt bearing status: No Severe MUSCULOSKELETAL pain: Yes: chest pain ADL Dysfunction: No Acute CVA w/Hemiparesis/Hemiplegia: No Decreased Functional Mobility/Strength: No Sprain/Strain: No Acute Post-op Mobility Dysfunction: No Total Points: 5 PT Screen per Nursing Assess ONCE Comment: Protocol Order Physician Instructions: Greater than 3 points order PT Admission Screenin Reason For Exam: Triggered on Admission Diagnosis: Chest pain R/O. Open Wound/Cellutlitis/Pressure Ulcers: No Acute Fx/ORIF/Change in wt bearing status: No Severe MUSCULOSKELETAL pain: Yes: chest pain ADL Dysfunction: No Acute CVA w/Hemiparesis/Hemiplegia: No Decreased Functional Mobility/Strength: No Sprain/Strain: No Acute Post-op Mobility Dysfunction: No Total Points: 5 - Discharge Discharge Date: 06/25/20 Disposition: Home, Self-Care Condition: Stable Prescriptions: New PARoxetine HCl [Paxil] 10 mg PO QAM 30 Days #30 tablet Continue Insulin Lispro [Humalog] 1 unit SQ TID Aspirin 81 gm Chew [Baby Aspirin 81 mg Chew] 81 mg PO DAILY Ranolazine [Ranolazine ER] 2,000 mg PO DAILY Atorvastatin Calcium 80 mg PO DAILY Isosorbide Mononitrate 20 mg [monoKET 20 MG] 20 mg PO BID Insulin Glargine,Hum.rec.anlog [Epi Espinosa U-100] 40 unit SQ DAILY Clopidogrel Bisulfate 75 mg [PLAVIX 75 MG Tablet] 75 mg PO DAILY Additional Instructions: Patient is to follow up with PCP for diabetes anxiety depression and referral for counseling. Patient is to follow up with interventional radiology technologist as well. Follow up with: DOCTOR,NO FAMILY [Primary Care Provider] -
[2020-06-25] MEDS: HUMALOG SQ PRN (12:49)
== END 2020-06-25 13:05 | disposition home or self-care (01) ==
LOC: ED 06:14 → MED SURG 08:41 → ED 08:41
PROVIDERS: ADMIT Family Medicine; ATTEND Family Medicine
DX: R07.9 Chest pain, unspecified (principal); I10 Essential (primary) hypertension; I25.10 Atherosclerotic heart disease of native coronary artery without angina pectoris; I25.2 Old myocardial infarction; E10.9 Type 1 diabetes mellitus without complications; Z79.899 Other long term (current) drug therapy; Z79.01 Long term (current) use of anticoagulants
CPT/HCPCS: 36000; 36415; 71045; 71260; 80053; 81001; 82947; 83036; 83735; 83880; 84484; 85025; 87077; 87086; 87186; 93005; 93041; 93268; 99285; G0378; J1817; A9270-GY

== ENCOUNTER 2021-03-17 13:07 | Observation (INO) | payer OTHER ==
--- NOTE | 2021-03-17 13:58 | XRAY ---
Indication: Short-term memory loss. Stroke. Multiple contiguous axial images obtained through the head without contrast. Comparison: None Age-appropriate global atrophy. No acute intracranial hemorrhage, abnormal extra-axial fluid collection, or mass effect. Fourth ventricle is midline without hydrocephalus. Adams-white matter differentiation preserved. Bony calvarium intact. Visualized paranasal sinuses and mastoid air cells are clear. Impression: Negative CT head without contrast exam.
[2021-03-17] MEDS ORDERED: Sodium Chloride 0.9% 1000 ML 1,000 ML IV SCH ×2 (14:00→17:45)
[2021-03-17] MEDS ORDERED: Sodium Chloride 0.9% 1000 ML 1,000 ML ONE (14:07)
[2021-03-17 14:18] LABS: Absolute Neutrophil Ct (ANC) 5.56 (1.4-6.9); BASOPHIL % 0.6 % (0.0-0.4); Basophil (Absolute #) 0.05 (0-0.4); Eosinophil % 1.8 % (0.00-5.0); Eosinophil (Absolute #) 0.14 (0-0.5); Hematocrit 41.5 % (35-47); Hemoglobin 13.9 gm/dl (12.0-16.0); Lymphocyte (Absolute #) 1.42 (1.0-4.6); Lymphocytes % 18.2 % (24.0-44.0); Mean Cell Volume 90.8 fl (78-100); Mean Corpuscular Hemoglobin 30.4 pg (26-32); Mean Corpuscular Hgb Concent. 33.5 g/dl (32-36); Mean Platelet Volume 10.6 fl (7.5-11.0); Monocyte (Absolute #) 0.64 (0.0-1.3); Monocytes % 8.2 % (0.0-12.0); Neutrophil % 71.2 % (36.0-66.0); Platelet Count 279 K/mm3 (150-450); Red Blood Count 4.57 M/mm3 (4.1-5.4); Red Cell Distribution Width 13.3 % (11.5-14.0); White Blood Count 7.8 K/mm3 (4.0-10.5)
[2021-03-17 14:29] LABS: ALBUMIN 4.3 g/dL (3.5-5.0); ALKALINE PHOSPHATASE 130 U/L (38-126); ANION GAP 15.1 MEQ/L (5-15); BLOOD UREA NITROGEN 20 mg/dL (7-17); CHLORIDE 100 mmol/L (98-107); Calcium 9.8 mg/dL (8.4-10.2); Carbon Dioxide 23 mmol/L (22-30); Creatinine 1 0.75 mg/dL (0.52-1.04); EST GLOMERULAR FILTRATION RATE > 60.0 ML/MIN; ETHYL ALCOHOL < 10 mg/dL (0-10); Glucose 325 mg/dL (74-106); Potassium 4.5 mmol/L (3.5-5.1); SGOT/AST 24 U/L (14-36); SGPT/ALT 14 U/L (0-35); SODIUM 133 mmol/L (137-145); Total Protein 7.1 g/dL (6.3-8.2)
--- NOTE | 2021-03-17 15:21 | ERPHSYRPT ---
- History of Present Illness Time Seen by Provider: 03/17/21 13:30 Source: patient Exam Limitations: no limitations Patient Subjective Stated Complaint: pt states she had a migraine 2 days ago and has had memory problems and unable to focus since then. states she continues to have a mild headache 3/10 to bilat temporal areas. Triage Nursing Assessment: pt alert and oriented, answers questions approp. pt ambulatory with steady gait noted. respriations nonlabored. skin warm and dry. pupils equal and reactive, bilat upper and lower ext strength equal and wnl Physician History: Patient is a 55-year-old female history of diabetes type 1 presents to our ED for evaluation of a migraine x2 days and memory deficits. Patient states it is difficult for her to focus. Patient's headache is rated 3 out of 10 at this time. Patient works as a supervisor [employer]. Patient states that she has been very forgetful. No head trauma. No neck pain. No fever. No photophobia. No meningeal signs. Patient denies focal or lateralizing symptoms. No numbness tingling or weakness. Symptoms are mild to moderate in intensity. No specific worsening improving factors. Patient voices no other complaints or concerns at this time. Timing/Duration: day(s) (2 days.) Severity: moderate Modifying Factors: Improves With: nothing Associated Symptoms: headaches, No nausea, No vomiting Allergies/Adverse Reactions: No Known Drug Allergies Allergy (Verified 03/17/21 13:33) Home Medications: Aspirin 81 gm Chew [Baby Aspirin 81 mg Chew] 81 mg PO DAILY 01/18/19 [History] Insulin Lispro [Humalog] 1 unit SQ TID 01/18/19 [History] Atorvastatin Calcium 80 mg PO DAILY 01/31/20 [History] Ranolazine [Ranolazine ER] 2,000 mg PO DAILY 01/31/20 [History] Clopidogrel Bisulfate 75 mg [PLAVIX 75 MG Tablet] 75 mg PO DAILY 06/24/20 [History] Insulin Glargine,Hum.rec.anlog [Basaglar Kwikpen U-100] 40 unit SQ DAILY 06/24/20 [History] Isosorbide Mononitrate 20 mg [monoKET 20 MG] 20 mg PO BID 06/24/20 [History] Hx Tetanus, Diphtheria Vaccination/Date Given: Yes Hx Influenza Vaccination/Date Given: No Hx Pneumococcal Vaccination/Date Given: Yes Immunizations Up to Date: Yes Travel Risk - International Travel Have you traveled outside of the country in past 3 weeks: No - Coronavirus Screening Are you exhibiting any of the following symptoms?: No Symptoms: Headaches/Body Aches/Fatigue Close contact with a COVID-19 positive Pt in past 14-21 Days: No - Vaccine Status Have you recieved a Covid-19 vaccination: Yes [place]: [place] - Review of Systems Constitutional: No Symptoms, No Fever, No Chills Eyes: No Symptoms Ears, Nose, & Throat: No Symptoms Respiratory: No Symptoms, No Cough, No Dyspnea Cardiac: No Symptoms, No Chest Pain, No Edema, No Syncope Abdominal/Gastrointestinal: No Symptoms, No Abdominal Pain, No Nausea, No Vomiting, No Diarrhea Genitourinary Symptoms: No Symptoms, No Dysuria Musculoskeletal: No Symptoms, No Back Pain, No Neck Pain Skin: No Symptoms, No Rash Neurological: No Symptoms, No Dizziness, No Focal Weakness, No Sensory Changes Psychological: No Symptoms Endocrine: No Symptoms Hematologic/Lymphatic: No Symptoms Immunological/Allergic: No Symptoms All Other Systems: Reviewed and Negative - Past Medical History Pertinent Past Medical History: Yes Neurological History: No Pertinent History ENT History: No Pertinent History Cardiac History: Coronary Artery Disease, Hypertension, Myocardial Infarction (DC), Other Respiratory History: No Pertinent History Endocrine Medical History: Diabetes Type I Musculoskeletal History: No Pertinent History GI Medical History: No Pertinent History History: No Pertinent History Psycho-Social History: No Pertinent History Female Reproductive Disorders: No Pertinent History Other Medical History: 8 cardiac stents stents, 6 MIs - September 2019. Total 11 DC. 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 - Past Surgical History Past Surgical History: Yes Neuro Surgical History: No Pertinent History Cardiac: Cardiac Stent Respiratory: No Pertinent History Gastrointestinal: No Pertinent History Genitourinary: No Pertinent History Musculoskeletal: No Pertinent History Female Surgical History: Hysterectomy, Section - Social History Smoking Status: Current every day smoker How long have you smoked: 35 yrs Exposure to second hand smoke: No Drug Use: none Patient Lives Alone: Yes - Female History Hx Last Menstrual Period: hyster Hx Now: No - Nursing Vital Signs Nursing Vital Signs: Initial Vital Signs Temperature 98.4 F 03/17/21 13:13 Pulse Rate 104 H 03/17/21 13:13 Respiratory Rate 16 03/17/21 13:13 Blood Pressure 178/87 03/17/21 13:13 O2 Sat by Pulse Oximetry 98 03/17/21 13:13 Pain Scale Pain Intensity 0 - Physical Exam General Appearance: no apparent distress, alert Eye Exam: PERRL/EOMI, eyes nml inspection Ears, Nose, Throat Exam: normal ENT inspection, TMs normal, pharynx normal, moist mucous membranes Neck Exam: normal inspection, non-tender, supple, full range of motion Respiratory Exam: normal breath sounds, lungs clear, airway intact, No respiratory distress Cardiovascular Exam: regular rate/rhythm, normal heart sounds, normal peripheral pulses Gastrointestinal/Abdomen Exam: soft, normal bowel sounds, No tenderness, No mass Back Exam: normal inspection, normal range of motion, No CVA tenderness, No vertebral tenderness Extremity Exam: normal inspection, normal range of motion, pelvis stable Neurologic Exam: alert, oriented x 3, cooperative, normal mood/affect, sensation nml, No motor deficits Skin Exam: normal color, warm, dry, No rash Lymphatic Exam: No adenopathy SpO2 Interpretation: normal SpO2: 98 - Course Nursing assessment & vital signs reviewed: Yes EKG Interpreted by Me: RATE (96), Sinus Rhythm, NORMAL AXIS, NORMAL INTERVALS - CT Exams Head CT Interpretation: Tele-radiologist Report (Negative CT head without contrast. Appropriate global atrophy. No acute intracranial hemorrhage abnormal extra- axial fluid collection or mass-effect. Fourth ventricle is midline without hydrocephalus. Adams-white matter differentiation preserved. Bony calvarium intact. Visualized paranasal sinu) Ordered Tests: Active Orders 24 hr Category Date Time Status Rug Hooker Hand STAT Care 03/17/21 13:55 Active EKG-ER Only STAT Care 03/17/21 13:54 Active IV Insertion STAT Care 03/17/21 13:54 Active POCT Glucose Check STAT Care 03/17/21 17:00 Active Pulse Oximetry (ED) STAT Care 03/17/21 13:54 Active Tele-Health Consult ROUTINE Cons 03/17/21 16:41 Active HEAD WITHOUT CONTRAST [CT] Stat Exams 03/17/21 13:34 Completed CBC W DIFF Stat Lab 03/17/21 14:00 Completed CMP Stat Lab 03/17/21 14:00 Completed CULTURE,URINE Stat Lab 03/17/21 15:15 Received ETHYL ALCOHOL Stat Lab 03/17/21 14:00 Completed POCT GLUCOSE Stat Lab 03/17/21 13:23 Completed POCT GLUCOSE Stat Lab 03/17/21 16:59 Completed TROPONIN Q3H Lab 03/17/21 14:00 Completed TROPONIN Q3H Lab 03/17/21 17:35 Completed TROPONIN Q3H Lab 03/17/21 20:00 Ordered TROPONIN Q3H Lab 03/17/21 23:00 Ordered TROPONIN Q3H Lab 03/18/21 02:00 Ordered TSH [TSH, 3RD Generation] Stat Lab 03/17/21 14:00 Completed UA W/RFX UR CULTURE Stat Lab 03/17/21 15:15 Completed Urine Triage Profile Stat Lab 03/17/21 15:15 Completed Medication Summary Generic Name Dose Route Start Last Admin Trade Name Freq PRN Reason Stop Dose Admin Sodium Chloride 1,000 mls @ 100 mls/hr 03/17/21 14:00 03/17/21 14:07 Sodium Chloride 0.9% 1000 Ml IV 04/16/21 13:59 100 mls/hr .Q10H ISIDRO Administration Sodium Chloride 1,000 mls @ 100 mls/hr 03/17/21 17:45 Sodium Chloride 0.9% 1000 Ml IV 04/16/21 17:44 .Q10H ISIDRO Discontinued Medications Generic Name Dose Route Start Last Admin Trade Name Freq PRN Reason Stop Dose Admin Aspirin 324 mg 03/17/21 17:33 03/17/21 17:53 Aspirin 81 Mg Tab.Chew PO 03/17/21 17:34 324 mg STAT ONE Administration Aspirin Confirm 03/17/21 17:51 Aspirin 81 Mg Tab.Chew Administered 03/17/21 17:52 Dose 324 mg .ROUTE .STK-MED ONE Insulin Human Regular 6 unit 03/17/21 17:06 03/17/21 17:26 Insulin Regular, Human 1 Unit SQ 03/17/21 17:07 6 unit STAT ONE Administration Insulin Human Regular Confirm 03/17/21 17:25 Insulin Regular, Human 1 Unit Administered 03/17/21 17:26 Dose 6 unit .ROUTE .STK-MED ONE Lab/Rad Data: Laboratory Result Diagrams 03/17/21 14:00 03/17/21 14:00 Laboratory Results 03/17/21 03/17/21 03/17/21 Range/Units 18:16 17:35 16:59 WBC (4.0-10.5) K/mm3 RBC (4.1-5.4) M/mm3 Hgb (12.0-16.0) gm/dl Hct (35-47) % MCV (78-100) fl MCH (26-32) pg MCHC (32-36) g/dl RDW (11.5-14.0) % Plt Count (150-450) K/mm3 MPV (7.5-11.0) fl Gran % (36.0-66.0) % Eos # (Auto) (0-0.5) Absolute Lymphs (auto) (1.0-4.6) Absolute Monos (auto) (0.0-1.3) Lymphocytes % (24.0-44.0) % Monocytes % (0.0-12.0) % Eosinophils % (0.00-5.0) % Basophils % (0.0-0.4) % Absolute Granulocytes (1.4-6.9) Basophils # (0-0.4) Sodium (137-145) mmol/L Potassium (3.5-5.1) mmol/L Chloride (98-107) mmol/L Carbon Dioxide (22-30) mmol/L Anion Gap (5-15) MEQ/L BUN (7-17) mg/dL Creatinine (0.52-1.04) mg/dL Estimated GFR ML/MIN Glucose (74-106) mg/dL POC Glucometer 398 H (74 to 106) mg/dL Calcium (8.4-10.2) mg/dL Total Bilirubin (0.2-1.3) mg/dL AST (14-36) U/L ALT (0-35) U/L Alkaline Phosphatase (38-126) U/L Troponin I < 0.012 (0.000-0.034) ng/mL Serum Total Protein (6.3-8.2) g/dL Albumin (3.5-5.0) g/dL TSH 3rd Generation (0.47-4.68) mIU/L Urine Color (YELLOW) Urine Appearance (CLEAR) Urine pH (5-6) Ur Specific [place] (1.005-1.025) Urine Protein (Negative) Urine Ketones (NEGATIVE) Urine Blood (0-5) [place]/ul Urine Nitrite (NEGATIVE) Urine Bilirubin (NEGATIVE) Urine Urobilinogen (0-1) mg/dL Ur Leukocyte Esterase (NEGATIVE) Urine WBC (Auto) (0-5) /HPF Urine RBC (Auto) (0-2) /HPF U Epithel Cells (Auto) (FEW) /HPF Urine Bacteria (Auto) (NEGATIVE) /HPF Urine Culture Reflexed (NO) Urine Glucose (NEGATIVE) mg/dL Urine Opiates Level (NEGATIVE) Ur Methadone (NEGATIVE) Urine Barbiturates (NEGATIVE) Ur Phencyclidine (PCP) (NEGATIVE) Urine Amphetamine (NEGATIVE) U Benzodiazepine Level (NEGATIVE) Urine Cocaine (NEGATIVE) Urine Marijuana (THC) (NEGATIVE) Ethyl Alcohol (0-10) mg/dL SARS-CoV-2 (PCR) NEGATIVE (NEGATIVE) 03/17/21 03/17/21 03/17/21 Range/Units 15:15 15:15 14:00 WBC (4.0-10.5) K/mm3 RBC (4.1-5.4) M/mm3 Hgb (12.0-16.0) gm/dl Hct (35-47) % MCV (78-100) fl MCH (26-32) pg MCHC (32-36) g/dl RDW (11.5-14.0) % Plt Count (150-450) K/mm3 MPV (7.5-11.0) fl Gran % (36.0-66.0) % Eos # (Auto) (0-0.5) Absolute Lymphs (auto) (1.0-4.6) Absolute Monos (auto) (0.0-1.3) Lymphocytes % (24.0-44.0) % Monocytes % (0.0-12.0) % Eosinophils % (0.00-5.0) % Basophils % (0.0-0.4) % Absolute Granulocytes (1.4-6.9) Basophils # (0-0.4) Sodium (137-145) mmol/L Potassium (3.5-5.1) mmol/L Chloride (98-107) mmol/L Carbon Dioxide (22-30) mmol/L Anion Gap (5-15) MEQ/L BUN (7-17) mg/dL Creatinine (0.52-1.04) mg/dL Estimated GFR ML/MIN Glucose (74-106) mg/dL POC Glucometer (74 to 106) mg/dL Calcium (8.4-10.2) mg/dL Total Bilirubin (0.2-1.3) mg/dL AST (14-36) U/L ALT (0-35) U/L Alkaline Phosphatase (38-126) U/L Troponin I (0.000-0.034) ng/mL Serum Total Protein (6.3-8.2) g/dL Albumin (3.5-5.0) g/dL TSH 3rd Generation 0.660 (0.47-4.68) mIU/L Urine Color YELLOW (YELLOW) Urine Appearance CLEAR (CLEAR) Urine pH 5.0 (5-6) Ur Specific [place] 1.012 (1.005-1.025) Urine Protein NEGATIVE (Negative) Urine Ketones SMALL (NEGATIVE) Urine Blood NEGATIVE (0-5) [place]/ul Urine Nitrite POSITIVE (NEGATIVE) Urine Bilirubin NEGATIVE (NEGATIVE) Urine Urobilinogen NEGATIVE (0-1) mg/dL Ur Leukocyte Esterase TRACE (NEGATIVE) Urine WBC (Auto) 11-15 (0-5) /HPF Urine RBC (Auto) 0-2 (0-2) /HPF U Epithel Cells (Auto) RARE (FEW) /HPF Urine Bacteria (Auto) MODERATE (NEGATIVE) /HPF Urine Culture Reflexed YES (NO) Urine Glucose >=500 (NEGATIVE) mg/dL Urine Opiates Level NEGATIVE (NEGATIVE) Ur Methadone NEGATIVE (NEGATIVE) Urine Barbiturates NEGATIVE (NEGATIVE) Ur Phencyclidine (PCP) NEGATIVE (NEGATIVE) Urine Amphetamine NEGATIVE (NEGATIVE) U Benzodiazepine Level NEGATIVE (NEGATIVE) Urine Cocaine NEGATIVE (NEGATIVE) Urine Marijuana (THC) NEGATIVE (NEGATIVE) Ethyl Alcohol (0-10) mg/dL SARS-CoV-2 (PCR) (NEGATIVE) 03/17/21 03/17/21 03/17/21 Range/Units 14:00 14:00 14:00 WBC 7.8 (4.0-10.5) K/mm3 RBC 4.57 (4.1-5.4) M/mm3 Hgb 13.9 (12.0-16.0) gm/dl Hct 41.5 (35-47) % MCV 90.8 (78-100) fl MCH 30.4 (26-32) pg MCHC 33.5 (32-36) g/dl RDW 13.3 (11.5-14.0) % Plt Count 279 (150-450) K/mm3 MPV 10.6 (7.5-11.0) fl Gran % 71.2 H (36.0-66.0) % Eos # (Auto) 0.14 (0-0.5) Absolute Lymphs (auto) 1.42 (1.0-4.6) Absolute Monos (auto) 0.64 (0.0-1.3) Lymphocytes % 18.2 L (24.0-44.0) % Monocytes % 8.2 (0.0-12.0) % Eosinophils % 1.8 (0.00-5.0) % Basophils % 0.6 (0.0-0.4) % Absolute Granulocytes 5.56 (1.4-6.9) Basophils # 0.05 (0-0.4) Sodium 133 L (137-145) mmol/L Potassium 4.5 (3.5-5.1) mmol/L Chloride 100 (98-107) mmol/L Carbon Dioxide 23 (22-30) mmol/L Anion Gap 15.1 H (5-15) MEQ/L BUN 20 H (7-17) mg/dL Creatinine 0.75 (0.52-1.04) mg/dL Estimated GFR > 60.0 ML/MIN Glucose 325 H (74-106) mg/dL POC Glucometer (74 to 106) mg/dL Calcium 9.8 (8.4-10.2) mg/dL Total Bilirubin 0.60 (0.2-1.3) mg/dL AST 24 (14-36) U/L ALT 14 (0-35) U/L Alkaline Phosphatase 130 H (38-126) U/L Troponin I < 0.012 (0.000-0.034) ng/mL Serum Total Protein 7.1 (6.3-8.2) g/dL Albumin 4.3 (3.5-5.0) g/dL TSH 3rd Generation (0.47-4.68) mIU/L Urine Color (YELLOW) Urine Appearance (CLEAR) Urine pH (5-6) Ur Specific [place] (1.005-1.025) Urine Protein (Negative) Urine Ketones (NEGATIVE) Urine Blood (0-5) [place]/ul Urine Nitrite (NEGATIVE) Urine Bilirubin (NEGATIVE) Urine Urobilinogen (0-1) mg/dL Ur Leukocyte Esterase (NEGATIVE) Urine WBC (Auto) (0-5) /HPF Urine RBC (Auto) (0-2) /HPF U Epithel Cells (Auto) (FEW) /HPF Urine Bacteria (Auto) (NEGATIVE) /HPF Urine Culture Reflexed (NO) Urine Glucose (NEGATIVE) mg/dL Urine Opiates Level (NEGATIVE) Ur Methadone (NEGATIVE) Urine Barbiturates (NEGATIVE) Ur Phencyclidine (PCP) (NEGATIVE) Urine Amphetamine (NEGATIVE) U Benzodiazepine Level (NEGATIVE) Urine Cocaine (NEGATIVE) Urine Marijuana (THC) (NEGATIVE) Ethyl Alcohol < 10 (0-10) mg/dL SARS-CoV-2 (PCR) (NEGATIVE) 03/17/21 Range/Units 13:23 WBC (4.0-10.5) K/mm3 RBC (4.1-5.4) M/mm3 Hgb (12.0-16.0) gm/dl Hct (35-47) % MCV (78-100) fl MCH (26-32) pg MCHC (32-36) g/dl RDW (11.5-14.0) % Plt Count (150-450) K/mm3 MPV (7.5-11.0) fl Gran % (36.0-66.0) % Eos # (Auto) (0-0.5) Absolute Lymphs (auto) (1.0-4.6) Absolute Monos (auto) (0.0-1.3) Lymphocytes % (24.0-44.0) % Monocytes % (0.0-12.0) % Eosinophils % (0.00-5.0) % Basophils % (0.0-0.4) % Absolute Granulocytes (1.4-6.9) Basophils # (0-0.4) Sodium (137-145) mmol/L Potassium (3.5-5.1) mmol/L Chloride (98-107) mmol/L Carbon Dioxide (22-30) mmol/L Anion Gap (5-15) MEQ/L BUN (7-17) mg/dL Creatinine (0.52-1.04) mg/dL Estimated GFR ML/MIN Glucose (74-106) mg/dL POC Glucometer 330 H (74 to 106) mg/dL Calcium (8.4-10.2) mg/dL Total Bilirubin (0.2-1.3) mg/dL AST (14-36) U/L ALT (0-35) U/L Alkaline Phosphatase (38-126) U/L Troponin I (0.000-0.034) ng/mL Serum Total Protein (6.3-8.2) g/dL Albumin (3.5-5.0) g/dL TSH 3rd Generation (0.47-4.68) mIU/L Urine Color (YELLOW) Urine Appearance (CLEAR) Urine pH (5-6) Ur Specific [place] (1.005-1.025) Urine Protein (Negative) Urine Ketones (NEGATIVE) Urine Blood (0-5) [place]/ul Urine Nitrite (NEGATIVE) Urine Bilirubin (NEGATIVE) Urine Urobilinogen (0-1) mg/dL Ur Leukocyte Esterase (NEGATIVE) Urine WBC (Auto) (0-5) /HPF Urine RBC (Auto) (0-2) /HPF U Epithel Cells (Auto) (FEW) /HPF Urine Bacteria (Auto) (NEGATIVE) /HPF Urine Culture Reflexed (NO) Urine Glucose (NEGATIVE) mg/dL Urine Opiates Level (NEGATIVE) Ur Methadone (NEGATIVE) Urine Barbiturates (NEGATIVE) Ur Phencyclidine (PCP) (NEGATIVE) Urine Amphetamine (NEGATIVE) U Benzodiazepine Level (NEGATIVE) Urine Cocaine (NEGATIVE) Urine Marijuana (THC) (NEGATIVE) Ethyl Alcohol (0-10) mg/dL SARS-CoV-2 (PCR) (NEGATIVE) - Progress Progress: improved Progress Note: Patient not a candidate for TPA patient is outside of the therapeutic window for TPA. 03/17/21 17:07 Covid test negative. Patient will be admitted to Dr. Argueta. Teleneuro evaluated patient at bedside. Recommendations made. Please see faxed teleneuro evaluation and recommendation record. Patient observed to have a urinary tract infection. 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 Work-up reveals hyperglycemia. Regular insulin subcu ordered and administered. Aspirin administered. IV fluids infused Plan of care discussed with patient. She agrees to admission to [facility] for further evaluation and treatment. 03/17/21 20:03 Discussed with .: Monse Will see patient in: hospital (observation) Counseled pt/family regarding: lab results, diagnosis, rad results - Departure Departure Disposition: Observation Clinical Impression: Migraine, Memory changes, Hyperglycemia, Hyponatremia, UTI (urinary tract infection) Condition: Stable Critical Care Time: No
[2021-03-17 15:22] LABS: Appearance CLEAR (CLEAR); Bacteria MODERATE /HPF (NEGATIVE); Bilirubin NEGATIVE (NEGATIVE); Blood NEGATIVE Ery/ul (0-5); Epithelial Cells RARE /HPF (FEW); Glucose >=500 mg/dL (NEGATIVE); Ketones SMALL (NEGATIVE); Leukocyte Esterase TRACE (NEGATIVE); Nitrite POSITIVE (NEGATIVE); Protein,Urine Dip NEGATIVE (Negative); RBC 0-2 /HPF (0-2); Specific Gravity 1.012 (1.005-1.025); Urobilinogen NEGATIVE mg/dL (0-1)
[2021-03-17 15:44] LABS: Amphetamine,Urine NEGATIVE (NEGATIVE); Barbiturate,Urine NEGATIVE (NEGATIVE); Benzodiazepine,Urine NEGATIVE (NEGATIVE); Cocaine,Urine NEGATIVE (NEGATIVE); Methadone,Urine NEGATIVE (NEGATIVE); Opiate,Urine NEGATIVE (NEGATIVE); PCP,Urine NEGATIVE (NEGATIVE); THC,Urine NEGATIVE (NEGATIVE)
[2021-03-17] MEDS ORDERED: HUMULIN R SQ ONE (17:06)
[2021-03-17] MEDS ORDERED: HUMULIN R ONE (17:25)
[2021-03-17] MEDS ORDERED: BABY ASPIRIN 81 MG CHEW PO ONE (17:33)
[2021-03-17] MEDS ORDERED: BABY ASPIRIN 81 MG CHEW ONE (17:51)
[2021-03-17] MEDS ORDERED: MORPHINE SULFATE 2 MG INJ IV PRN (20:05)
[2021-03-17] MEDS ORDERED: Zofran 4 MG/2 ML VIAL IV PRN (20:05)
[2021-03-17] MEDS: ROCEPHIN 1 Gm-D5w 50 ml Bag** 1 G/50 ML IVPB IV SCH (21:38)
[2021-03-18] MEDS ORDERED: HUMALOG SQ ONE (04:35)
[2021-03-18 05:09] LABS: Absolute Neutrophil Ct (ANC) 5.05 (1.4-6.9); BASOPHIL % 0.9 % (0.0-0.4); Basophil (Absolute #) 0.07 (0-0.4); Eosinophil % 2.9 % (0.00-5.0); Eosinophil (Absolute #) 0.22 (0-0.5); Hematocrit 43.1 % (35-47); Hemoglobin 13.9 gm/dl (12.0-16.0); Lymphocyte (Absolute #) 1.52 (1.0-4.6); Lymphocytes % 19.8 % (24.0-44.0); Mean Cell Volume 92.9 fl (78-100); Mean Corpuscular Hgb Concent. 32.3 g/dl (32-36); Mean Platelet Volume 10.7 fl (7.5-11.0); Monocyte (Absolute #) 0.83 (0.0-1.3); Monocytes % 10.8 % (0.0-12.0); Neutrophil % 65.6 % (36.0-66.0); Platelet Count 258 K/mm3 (150-450); Red Blood Count 4.64 M/mm3 (4.1-5.4); Red Cell Distribution Width 13.4 % (11.5-14.0); White Blood Count 7.7 K/mm3 (4.0-10.5)
[2021-03-18] MEDS: HUMALOG SQ PRN ×4 (05:22→21:17)
[2021-03-18 05:32] LABS: ALBUMIN 4.1 g/dL (3.5-5.0); ALKALINE PHOSPHATASE 158 U/L (38-126); BLOOD UREA NITROGEN 16 mg/dL (7-17); CHLORIDE 102 mmol/L (98-107); Calcium 9.5 mg/dL (8.4-10.2); Creatinine 1 0.63 mg/dL (0.52-1.04); EST GLOMERULAR FILTRATION RATE > 60.0 ML/MIN; Glucose 493 mg/dL (74-106); SGOT/AST 21 U/L (14-36); SGPT/ALT 13 U/L (0-35); SODIUM 132 mmol/L (137-145); Total Protein 6.7 g/dL (6.3-8.2)
[2021-03-18 05:37] LABS: Potassium 4.4 mmol/L (3.5-5.1)
[2021-03-18 05:40] LABS: Carbon Dioxide 16 mmol/L (22-30)
[2021-03-18 05:41] LABS: ANION GAP 18.4 MEQ/L (5-15)
--- NOTE | 2021-03-18 08:53 | PCM.HP ---
History of Present Illness - Chief Complaint Chief Complaint: Migraine, Memory Changes. History of Present Illness: is a 55 year old female with no local physician, she came to the ER yesterday complaining of a several day history of headache and confusion, she denies numbness, tingling, weakness or complains with her upper or lower extremities. she has type 1 diabetes and wears an insulin pump but is not present with her in the hospital. - Review of Systems Constitutional: No Symptoms Respiratory: No Cough, No Short Of Breath Cardiac: No Chest Pain, No Edema, No Syncope Abdominal/Gastrointestinal: No Abdominal Pain, No Nausea, No Vomiting, No Diarrhea Genitourinary Symptoms: No Dysuria Skin: No Rash Neurological: Headache, No Sensory Changes, No Speech Changes Psychological: No Symptoms All Other Systems: Reviewed and Negative Medications & Allergies Home Medications: Home Medication List Aspirin 81 gm Chew [Baby Aspirin 81 mg Chew] 81 mg PO DAILY 01/18/19 [History Confirmed 03/17/21] Atorvastatin Calcium 80 mg PO DAILY 01/31/20 [History Confirmed 03/17/21] Ranolazine [Ranolazine ER] 2,000 mg PO DAILY 01/31/20 [History Confirmed 03/17/21] Clopidogrel Bisulfate 75 mg [PLAVIX 75 MG Tablet] 75 mg PO DAILY 06/24/20 [History Confirmed 03/17/21] Isosorbide Mononitrate 20 mg [monoKET 20 MG] 180 mg PO BID 06/24/20 [History Confirmed 03/17/21] Evolocumab [Repatha Sureclick] 140 mg SQ Q14D 03/17/21 [History Confirmed 03/17/21] Metoprolol Succinate 25 mg Xl* [Toprol-Xl 25MG Tablets] 12.5 mg PO DAILY 03/17/21 [History Confirmed 03/17/21] Allergies/Adverse Reactions: Allergies Allergy/AdvReac Type Severity Reaction Status Date / Time No Known Drug Allergies Allergy Verified 03/17/21 13:33 - Past Medical History Past Medical History: Yes Neurological History: No Pertinent History ENT History: Cataracts Cardiac History: Coronary Artery Disease, High Cholesterol, Hypertension, Myocardial Infarction ([place]) Respiratory History: No Pertinent History Endocrine Medical History: Diabetes Type I Musculoskelatal History: No Pertinent History GI Medical History: No Pertinent History History: No Pertinent History Pyscho-Social History: Anxiety, Depression, Eating Disorders Reproductive Disorders: No Pertinent History Comment: 8 cardiac stents stents, 6 MIs - September 2019. Total 11 GA. 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 - Female History Hx Last Menstrual Period: hyster Are you now?: No - Past Surgical History Past Surgical History: Yes Neuro Surgical History: No Pertinent History Cardiac History: Cardiac Catheterization, Cardiac Stent Respiratory Surgery: No Pertinent History GI Surgical History: No Pertinent History Genitourinary Surgical Hx: No Pertinent History Musculskeletal Surgical Hx: No Pertinent History Female Surgical History: Hysterectomy, Section - Social History Smoking Status: Current every day smoker How long have you smoked: 25 years Exposure to second hand smoke: No Alcohol: None Drug Use: none - Physical Exam Vital Signs: Vital Signs - 24 hr Temp Pulse Resp BP Pulse Ox 03/18/21 07:48 97.7 F 98 H 16 133/60 99 03/18/21 04:00 97.8 F 92 H 19 138/65 96 03/18/21 00:00 98.0 F 91 H 18 135/62 97 03/17/21 20:14 98 F 97 H 16 138/64 95 03/17/21 20:05 98 03/17/21 20:05 95 03/17/21 19:00 92 H 20 127/60 97 03/17/21 16:31 98 H 18 143/62 98 03/17/21 14:04 98 03/17/21 13:13 98.4 F 104 H 16 178/87 98 General Appearance: no apparent distress, alert Neurologic Exam: alert, oriented x 3, 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, No motor deficits, No sensory deficit Respiratory Exam: normal breath sounds Cardiovascular Exam: regular rate/rhythm, normal heart sounds, normal peripheral pulses Gastrointestinal/Abdomen Exam: soft, normal bowel sounds, No tenderness, No mass Extremity Exam: normal inspection, normal range of motion, pelvis stable Skin Exam: normal color, warm, dry, No rash Results - Labs Lab/Micro Results: Lab Results-Last 24 Hours 03/17/21 03/17/21 03/17/21 Range/Units 13:23 14:00 14:00 WBC 7.8 (4.0-10.5) K/mm3 RBC 4.57 (4.1-5.4) M/mm3 Hgb 13.9 (12.0-16.0) gm/dl Hct 41.5 (35-47) % MCV 90.8 (78-100) fl MCH 30.4 (26-32) pg MCHC 33.5 (32-36) g/dl RDW 13.3 (11.5-14.0) % Plt Count 279 (150-450) K/mm3 MPV 10.6 (7.5-11.0) fl Gran % 71.2 H (36.0-66.0) % Eos # (Auto) 0.14 (0-0.5) Absolute Lymphs (auto) 1.42 (1.0-4.6) Absolute Monos (auto) 0.64 (0.0-1.3) Lymphocytes % 18.2 L (24.0-44.0) % Monocytes % 8.2 (0.0-12.0) % Eosinophils % 1.8 (0.00-5.0) % Basophils % 0.6 (0.0-0.4) % Absolute Granulocytes 5.56 (1.4-6.9) Basophils # 0.05 (0-0.4) Sodium 133 L (137-145) mmol/L Potassium 4.5 (3.5-5.1) mmol/L Chloride 100 (98-107) mmol/L Carbon Dioxide 23 (22-30) mmol/L Anion Gap 15.1 H (5-15) MEQ/L BUN 20 H (7-17) mg/dL Creatinine 0.75 (0.52-1.04) mg/dL Estimated GFR > 60.0 ML/MIN Glucose 325 H (74-106) mg/dL POC Glucometer 330 H (74 to 106) mg/dL Calcium 9.8 (8.4-10.2) mg/dL Total Bilirubin 0.60 (0.2-1.3) mg/dL AST 24 (14-36) U/L ALT 14 (0-35) U/L Alkaline Phosphatase 130 H (38-126) U/L Troponin I (0.000-0.034) ng/mL Serum Total Protein 7.1 (6.3-8.2) g/dL Albumin 4.3 (3.5-5.0) g/dL TSH 3rd Generation (0.47-4.68) mIU/L Urine Color (YELLOW) Urine Appearance (CLEAR) Urine pH (5-6) Ur Specific [place] (1.005-1.025) Urine Protein (Negative) Urine Ketones (NEGATIVE) Urine Blood (0-5) [place]/ul Urine Nitrite (NEGATIVE) Urine Bilirubin (NEGATIVE) Urine Urobilinogen (0-1) mg/dL Ur Leukocyte Esterase (NEGATIVE) Urine WBC (Auto) (0-5) /HPF Urine RBC (Auto) (0-2) /HPF U Epithel Cells (Auto) (FEW) /HPF Urine Bacteria (Auto) (NEGATIVE) /HPF Urine Culture Reflexed (NO) Urine Glucose (NEGATIVE) mg/dL Urine Opiates Level (NEGATIVE) Ur Methadone (NEGATIVE) Urine Barbiturates (NEGATIVE) Ur Phencyclidine (PCP) (NEGATIVE) Urine Amphetamine (NEGATIVE) U Benzodiazepine Level (NEGATIVE) Urine Cocaine (NEGATIVE) Urine Marijuana (THC) (NEGATIVE) Ethyl Alcohol < 10 (0-10) mg/dL SARS-CoV-2 (PCR) (NEGATIVE) 03/17/21 03/17/21 03/17/21 Range/Units 14:00 14:00 15:15 WBC (4.0-10.5) K/mm3 RBC (4.1-5.4) M/mm3 Hgb (12.0-16.0) gm/dl Hct (35-47) % MCV (78-100) fl MCH (26-32) pg MCHC (32-36) g/dl RDW (11.5-14.0) % Plt Count (150-450) K/mm3 MPV (7.5-11.0) fl Gran % (36.0-66.0) % Eos # (Auto) (0-0.5) Absolute Lymphs (auto) (1.0-4.6) Absolute Monos (auto) (0.0-1.3) Lymphocytes % (24.0-44.0) % Monocytes % (0.0-12.0) % Eosinophils % (0.00-5.0) % Basophils % (0.0-0.4) % Absolute Granulocytes (1.4-6.9) Basophils # (0-0.4) Sodium (137-145) mmol/L Potassium (3.5-5.1) mmol/L Chloride (98-107) mmol/L Carbon Dioxide (22-30) mmol/L Anion Gap (5-15) MEQ/L BUN (7-17) mg/dL Creatinine (0.52-1.04) mg/dL Estimated GFR ML/MIN Glucose (74-106) mg/dL POC Glucometer (74 to 106) mg/dL Calcium (8.4-10.2) mg/dL Total Bilirubin (0.2-1.3) mg/dL AST (14-36) U/L ALT (0-35) U/L Alkaline Phosphatase (38-126) U/L Troponin I < 0.012 (0.000-0.034) ng/mL Serum Total Protein (6.3-8.2) g/dL Albumin (3.5-5.0) g/dL TSH 3rd Generation 0.660 (0.47-4.68) mIU/L Urine Color YELLOW (YELLOW) Urine Appearance CLEAR (CLEAR) Urine pH 5.0 (5-6) Ur Specific [place] 1.012 (1.005-1.025) Urine Protein NEGATIVE (Negative) Urine Ketones SMALL (NEGATIVE) Urine Blood NEGATIVE (0-5) [place]/ul Urine Nitrite POSITIVE (NEGATIVE) Urine Bilirubin NEGATIVE (NEGATIVE) Urine Urobilinogen NEGATIVE (0-1) mg/dL Ur Leukocyte Esterase TRACE (NEGATIVE) Urine WBC (Auto) 11-15 (0-5) /HPF Urine RBC (Auto) 0-2 (0-2) /HPF U Epithel Cells (Auto) RARE (FEW) /HPF Urine Bacteria (Auto) MODERATE (NEGATIVE) /HPF Urine Culture Reflexed YES (NO) Urine Glucose >=500 (NEGATIVE) mg/dL Urine Opiates Level (NEGATIVE) Ur Methadone (NEGATIVE) Urine Barbiturates (NEGATIVE) Ur Phencyclidine (PCP) (NEGATIVE) Urine Amphetamine (NEGATIVE) U Benzodiazepine Level (NEGATIVE) Urine Cocaine (NEGATIVE) Urine Marijuana (THC) (NEGATIVE) Ethyl Alcohol (0-10) mg/dL SARS-CoV-2 (PCR) (NEGATIVE) 03/17/21 03/17/21 03/17/21 Range/Units 15:15 16:59 17:35 WBC (4.0-10.5) K/mm3 RBC (4.1-5.4) M/mm3 Hgb (12.0-16.0) gm/dl Hct (35-47) % MCV (78-100) fl MCH (26-32) pg MCHC (32-36) g/dl RDW (11.5-14.0) % Plt Count (150-450) K/mm3 MPV (7.5-11.0) fl Gran % (36.0-66.0) % Eos # (Auto) (0-0.5) Absolute Lymphs (auto) (1.0-4.6) Absolute Monos (auto) (0.0-1.3) Lymphocytes % (24.0-44.0) % Monocytes % (0.0-12.0) % Eosinophils % (0.00-5.0) % Basophils % (0.0-0.4) % Absolute Granulocytes (1.4-6.9) Basophils # (0-0.4) Sodium (137-145) mmol/L Potassium (3.5-5.1) mmol/L Chloride (98-107) mmol/L Carbon Dioxide (22-30) mmol/L Anion Gap (5-15) MEQ/L BUN (7-17) mg/dL Creatinine (0.52-1.04) mg/dL Estimated GFR ML/MIN Glucose (74-106) mg/dL POC Glucometer 398 H (74 to 106) mg/dL Calcium (8.4-10.2) mg/dL Total Bilirubin (0.2-1.3) mg/dL AST (14-36) U/L ALT (0-35) U/L Alkaline Phosphatase (38-126) U/L Troponin I < 0.012 (0.000-0.034) ng/mL Serum Total Protein (6.3-8.2) g/dL Albumin (3.5-5.0) g/dL TSH 3rd Generation (0.47-4.68) mIU/L Urine Color (YELLOW) Urine Appearance (CLEAR) Urine pH (5-6) Ur Specific [place] (1.005-1.025) Urine Protein (Negative) Urine Ketones (NEGATIVE) Urine Blood (0-5) [place]arrison/ul Urine Nitrite (NEGATIVE) Urine Bilirubin (NEGATIVE) Urine Urobilinogen (0-1) mg/dL Ur Leukocyte Esterase (NEGATIVE) Urine WBC (Auto) (0-5) /HPF Urine RBC (Auto) (0-2) /HPF U Epithel Cells (Auto) (FEW) /HPF Urine Bacteria (Auto) (NEGATIVE) /HPF Urine Culture Reflexed (NO) Urine Glucose (NEGATIVE) mg/dL Urine Opiates Level NEGATIVE (NEGATIVE) Ur Methadone NEGATIVE (NEGATIVE) Urine Barbiturates NEGATIVE (NEGATIVE) Ur Phencyclidine (PCP) NEGATIVE (NEGATIVE) Urine Amphetamine NEGATIVE (NEGATIVE) U Benzodiazepine Level NEGATIVE (NEGATIVE) Urine Cocaine NEGATIVE (NEGATIVE) Urine Marijuana (THC) NEGATIVE (NEGATIVE) Ethyl Alcohol (0-10) mg/dL SARS-CoV-2 (PCR) (NEGATIVE) 03/17/21 03/17/21 03/17/21 Range/Units 18:16 19:57 20:33 WBC (4.0-10.5) K/mm3 RBC (4.1-5.4) M/mm3 Hgb (12.0-16.0) gm/dl Hct (35-47) % MCV (78-100) fl MCH (26-32) pg MCHC (32-36) g/dl RDW (11.5-14.0) % Plt Count (150-450) K/mm3 MPV (7.5-11.0) fl Gran % (36.0-66.0) % Eos # (Auto) (0-0.5) Absolute Lymphs (auto) (1.0-4.6) Absolute Monos (auto) (0.0-1.3) Lymphocytes % (24.0-44.0) % Monocytes % (0.0-12.0) % Eosinophils % (0.00-5.0) % Basophils % (0.0-0.4) % Absolute Granulocytes (1.4-6.9) Basophils # (0-0.4) Sodium (137-145) mmol/L Potassium (3.5-5.1) mmol/L Chloride (98-107) mmol/L Carbon Dioxide (22-30) mmol/L Anion Gap (5-15) MEQ/L BUN (7-17) mg/dL Creatinine (0.52-1.04) mg/dL Estimated GFR ML/MIN Glucose (74-106) mg/dL POC Glucometer 279 H (74 to 106) mg/dL Calcium (8.4-10.2) mg/dL Total Bilirubin (0.2-1.3) mg/dL AST (14-36) U/L ALT (0-35) U/L Alkaline Phosphatase (38-126) U/L Troponin I < 0.012 (0.000-0.034) ng/mL Serum Total Protein (6.3-8.2) g/dL Albumin (3.5-5.0) g/dL TSH 3rd Generation (0.47-4.68) mIU/L Urine Color (YELLOW) Urine Appearance (CLEAR) Urine pH (5-6) Ur Specific [place] (1.005-1.025) Urine Protein (Negative) Urine Ketones (NEGATIVE) Urine Blood (0-5) Garrison/ul Urine Nitrite (NEGATIVE) Urine Bilirubin (NEGATIVE) Urine Urobilinogen (0-1) mg/dL Ur Leukocyte Esterase (NEGATIVE) Urine WBC (Auto) (0-5) /HPF Urine RBC (Auto) (0-2) /HPF U Epithel Cells (Auto) (FEW) /HPF Urine Bacteria (Auto) (NEGATIVE) /HPF Urine Culture Reflexed (NO) Urine Glucose (NEGATIVE) mg/dL Urine Opiates Level (NEGATIVE) Ur Methadone (NEGATIVE) Urine Barbiturates (NEGATIVE) Ur Phencyclidine (PCP) (NEGATIVE) Urine Amphetamine (NEGATIVE) U Benzodiazepine Level (NEGATIVE) Urine Cocaine (NEGATIVE) Urine Marijuana (THC) (NEGATIVE) Ethyl Alcohol (0-10) mg/dL SARS-CoV-2 (PCR) NEGATIVE (NEGATIVE) 03/18/21 03/18/21 03/18/21 Range/Units 04:20 04:20 04:24 WBC 7.7 (4.0-10.5) K/mm3 RBC 4.64 (4.1-5.4) M/mm3 Hgb 13.9 (12.0-16.0) gm/dl Hct 43.1 (35-47) % MCV 92.9 (78-100) fl MCH 30.0 (26-32) pg MCHC 32.3 (32-36) g/dl RDW 13.4 (11.5-14.0) % Plt Count 258 (150-450) K/mm3 MPV 10.7 (7.5-11.0) fl Gran % 65.6 (36.0-66.0) % Eos # (Auto) 0.22 (0-0.5) Absolute Lymphs (auto) 1.52 (1.0-4.6) Absolute Monos (auto) 0.83 (0.0-1.3) Lymphocytes % 19.8 L (24.0-44.0) % Monocytes % 10.8 (0.0-12.0) % Eosinophils % 2.9 (0.00-5.0) % Basophils % 0.9 (0.0-0.4) % Absolute Granulocytes 5.05 (1.4-6.9) Basophils # 0.07 (0-0.4) Sodium 132 L (137-145) mmol/L Potassium 4.4 (3.5-5.1) mmol/L Chloride 102 (98-107) mmol/L Carbon Dioxide 16 L* (22-30) mmol/L Anion Gap 18.4 H (5-15) MEQ/L BUN 16 (7-17) mg/dL Creatinine 0.63 (0.52-1.04) mg/dL Estimated GFR > 60.0 ML/MIN Glucose 493 H (74-106) mg/dL POC Glucometer 523 H* (74 to 106) mg/dL Calcium 9.5 (8.4-10.2) mg/dL Total Bilirubin 0.60 (0.2-1.3) mg/dL AST 21 (14-36) U/L ALT 13 (0-35) U/L Alkaline Phosphatase 158 H (38-126) U/L Troponin I (0.000-0.034) ng/mL Serum Total Protein 6.7 (6.3-8.2) g/dL Albumin 4.1 (3.5-5.0) g/dL TSH 3rd Generation (0.47-4.68) mIU/L Urine Color (YELLOW) Urine Appearance (CLEAR) Urine pH (5-6) Ur Specific [place] (1.005-1.025) Urine Protein (Negative) Urine Ketones (NEGATIVE) Urine Blood (0-5) Garrison/ul Urine Nitrite (NEGATIVE) Urine Bilirubin (NEGATIVE) Urine Urobilinogen (0-1) mg/dL Ur Leukocyte Esterase (NEGATIVE) Urine WBC (Auto) (0-5) /HPF Urine RBC (Auto) (0-2) /HPF U Epithel Cells (Auto) (FEW) /HPF Urine Bacteria (Auto) (NEGATIVE) /HPF Urine Culture Reflexed (NO) Urine Glucose (NEGATIVE) mg/dL Urine Opiates Level (NEGATIVE) Ur Methadone (NEGATIVE) Urine Barbiturates (NEGATIVE) Ur Phencyclidine (PCP) (NEGATIVE) Urine Amphetamine (NEGATIVE) U Benzodiazepine Level (NEGATIVE) Urine Cocaine (NEGATIVE) Urine Marijuana (THC) (NEGATIVE) Ethyl Alcohol (0-10) mg/dL SARS-CoV-2 (PCR) (NEGATIVE) 03/18/21 03/18/21 03/18/21 Range/Units 05:07 05:51 06:35 WBC (4.0-10.5) K/mm3 RBC (4.1-5.4) M/mm3 Hgb (12.0-16.0) gm/dl Hct (35-47) % MCV (78-100) fl MCH (26-32) pg MCHC (32-36) g/dl RDW (11.5-14.0) % Plt Count (150-450) K/mm3 MPV (7.5-11.0) fl Gran % (36.0-66.0) % Eos # (Auto) (0-0.5) Absolute Lymphs (auto) (1.0-4.6) Absolute Monos (auto) (0.0-1.3) Lymphocytes % (24.0-44.0) % Monocytes % (0.0-12.0) % Eosinophils % (0.00-5.0) % Basophils % (0.0-0.4) % Absolute Granulocytes (1.4-6.9) Basophils # (0-0.4) Sodium (137-145) mmol/L Potassium (3.5-5.1) mmol/L Chloride (98-107) mmol/L Carbon Dioxide (22-30) mmol/L Anion Gap (5-15) MEQ/L BUN (7-17) mg/dL Creatinine (0.52-1.04) mg/dL Estimated GFR ML/MIN Glucose (74-106) mg/dL POC Glucometer 455 H 341 H 260 H (74 to 106) mg/dL Calcium (8.4-10.2) mg/dL Total Bilirubin (0.2-1.3) mg/dL AST (14-36) U/L ALT (0-35) U/L Alkaline Phosphatase (38-126) U/L Troponin I (0.000-0.034) ng/mL Serum Total Protein (6.3-8.2) g/dL Albumin (3.5-5.0) g/dL TSH 3rd Generation (0.47-4.68) mIU/L Urine Color (YELLOW) Urine Appearance (CLEAR) Urine pH (5-6) Ur Specific [place] (1.005-1.025) Urine Protein (Negative) Urine Ketones (NEGATIVE) Urine Blood (0-5) Garrison/ul Urine Nitrite (NEGATIVE) Urine Bilirubin (NEGATIVE) Urine Urobilinogen (0-1) mg/dL Ur Leukocyte Esterase (NEGATIVE) Urine WBC (Auto) (0-5) /HPF Urine RBC (Auto) (0-2) /HPF U Epithel Cells (Auto) (FEW) /HPF Urine Bacteria (Auto) (NEGATIVE) /HPF Urine Culture Reflexed (NO) Urine Glucose (NEGATIVE) mg/dL Urine Opiates Level (NEGATIVE) Ur Methadone (NEGATIVE) Urine Barbiturates (NEGATIVE) Ur Phencyclidine (PCP) (NEGATIVE) Urine Amphetamine (NEGATIVE) U Benzodiazepine Level (NEGATIVE) Urine Cocaine (NEGATIVE) Urine Marijuana (THC) (NEGATIVE) Ethyl Alcohol (0-10) mg/dL SARS-CoV-2 (PCR) (NEGATIVE) 03/18/21 Range/Units 08:01 WBC (4.0-10.5) K/mm3 RBC (4.1-5.4) M/mm3 Hgb (12.0-16.0) gm/dl Hct (35-47) % MCV (78-100) fl MCH (26-32) pg MCHC (32-36) g/dl RDW (11.5-14.0) % Plt Count (150-450) K/mm3 MPV (7.5-11.0) fl Gran % (36.0-66.0) % Eos # (Auto) (0-0.5) Absolute Lymphs (auto) (1.0-4.6) Absolute Monos (auto) (0.0-1.3) Lymphocytes % (24.0-44.0) % Monocytes % (0.0-12.0) % Eosinophils % (0.00-5.0) % Basophils % (0.0-0.4) % Absolute Granulocytes (1.4-6.9) Basophils # (0-0.4) Sodium (137-145) mmol/L Potassium (3.5-5.1) mmol/L Chloride (98-107) mmol/L Carbon Dioxide (22-30) mmol/L Anion Gap (5-15) MEQ/L BUN (7-17) mg/dL Creatinine (0.52-1.04) mg/dL Estimated GFR ML/MIN Glucose (74-106) mg/dL POC Glucometer 124 H (74 to 106) mg/dL Calcium (8.4-10.2) mg/dL Total Bilirubin (0.2-1.3) mg/dL AST (14-36) U/L ALT (0-35) U/L Alkaline Phosphatase (38-126) U/L Troponin I (0.000-0.034) ng/mL Serum Total Protein (6.3-8.2) g/dL Albumin (3.5-5.0) g/dL TSH 3rd Generation (0.47-4.68) mIU/L Urine Color (YELLOW) Urine Appearance (CLEAR) Urine pH (5-6) Ur Specific [place] (1.005-1.025) Urine Protein (Negative) Urine Ketones (NEGATIVE) Urine Blood (0-5) Garrison/ul Urine Nitrite (NEGATIVE) Urine Bilirubin (NEGATIVE) Urine Urobilinogen (0-1) mg/dL Ur Leukocyte Esterase (NEGATIVE) Urine WBC (Auto) (0-5) /HPF Urine RBC (Auto) (0-2) /HPF U Epithel Cells (Auto) (FEW) /HPF Urine Bacteria (Auto) (NEGATIVE) /HPF Urine Culture Reflexed (NO) Urine Glucose (NEGATIVE) mg/dL Urine Opiates Level (NEGATIVE) Ur Methadone (NEGATIVE) Urine Barbiturates (NEGATIVE) Ur Phencyclidine (PCP) (NEGATIVE) Urine Amphetamine (NEGATIVE) U Benzodiazepine Level (NEGATIVE) Urine Cocaine (NEGATIVE) Urine Marijuana (THC) (NEGATIVE) Ethyl Alcohol (0-10) mg/dL SARS-CoV-2 (PCR) (NEGATIVE) Accuchecks Date 03/17/21 Time 17:00 - Radiology Impressions Radiology Exams & Impressions: Radiology Procedures Category Date Time Status ECHO W/2D AND DOPPLER [US] Routine Exams 03/18/21 Ordered HEAD WITHOUT CONTRAST [CT] Stat Exams 03/17/21 13:34 Completed MRA BRAIN WITHOUT CONTRAST [MRI] Routine Exams 03/18/21 07:41 Ordered MRA NECK WITH CONTRAST [MRI] Routine Exams 03/18/21 07:41 Ordered MRI BRAIN W/O CONTRAST [MRI] Routine Exams 03/18/21 07:42 Ordered Assessment/Plan (1) UTI (urinary tract infection) Current Visit: Yes Status: Acute Assessment & Plan: on rocephin, culture pending Code(s): N39.0 - URINARY TRACT INFECTION, SITE NOT SPECIFIED (2) Headache Current Visit: Yes Status: Acute Assessment & Plan: check MRI and MRA per neuro recommendation Code(s): R51.9 - HEADACHE, UNSPECIFIED (3) Altered mental status Current Visit: Yes Status: Acute Code(s): R41.82 - ALTERED MENTAL STATUS, UNSPECIFIED (4) Hyperglycemia Current Visit: Yes Status: Acute Code(s): R73.9 - HYPERGLYCEMIA, UNSPECIFIED
[2021-03-18] MEDS: Lantus Insulin SQ SCH (09:02)
[2021-03-18] MEDS: Toprol-Xl 25MG Tablets PO SCH (09:39)
[2021-03-18] MEDS: ECOTRIN 81 MG PO SCH (09:39)
[2021-03-18] MEDS: PLAVIX 75 MG Tablet PO SCH (09:39)
[2021-03-18] MEDS: ZOCOR 20MG PO SCH (09:39)
[2021-03-18] MEDS ORDERED: NON-FORMULARY ITEM (Atorvastatin Calcium [Atorvastatin Calcium] 80 MG Tablet) PO SCH (10:00)
[2021-03-18] MEDS ORDERED: NON-FORMULARY ITEM (Ranolazine [Ranolazine Er] 1,000 MG Tab.Er.12h) PO SCH (10:00)
[2021-03-18] MEDS ORDERED: monoKET 20 MG PO SCH (10:00)
--- NOTE | 2021-03-18 11:39 | XRAY ---
Indication: Migraine. Confusion. Loss of peripheral vision. Multi-slab 3-D [id number] MRA [place] performed. Comparison: None Distal internal carotid arteries demonstrates mild arteriosclerotic disease bilaterally. Findings correspond to parasellar internal carotid artery calcifications on CT head March 17, 2021. Normal carotid terminus with normal branching A1 and M1 segments bilaterally. More distal anterior cerebral and middle cerebral arteries are normal in MRA appearance. Posterior circulation demonstrates normal MRA appearance to the basilar artery, left/right posterior cerebral, and left/right superior cerebellar arteries. 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 Remaining MRA [place] is negative.
--- NOTE | 2021-03-18 11:49 | XRAY ---
Indication: Migraine. Confusion. Loss of peripheral vision. Sagittal, coronal, and axial MRI brain performed without contrast using T1, T2, FLAIR, diffusion, and ADC sequences. Comparison: None Age-appropriate global atrophy. A few tiny periventricular degenerative micro-ischemia signal bilaterally. No acute intracranial hemorrhage, abnormal extra-axial fluid collection, or mass effect. Diffusion images are negative for restricted signal. Fourth ventricle is midline without hydrocephalus. 7/8 cranial nerve complex bilaterally symmetric. Normal flow void signal within the major intracerebral circulation. Normal appearing craniocervical junction and sella turcica. Visualized paranasal sinuses are clear. Impression: 1. Atrophy and minimal periventricular degenerative micro-ischemia within normal limits for patient's age. 2. Remaining MRI brain without contrast exam is negative.
[2021-03-18] MEDS: Ranexa 500 MG PO SCH ×2 (12:17→21:17)
[2021-03-18] MEDS: Sodium Chloride 0.9% 1000 ML 1,000 ML IV SCH ×2 (12:17→21:16)
--- NOTE | 2021-03-18 12:22 | XRAY ---
Indication: Migraine. Confusion. Loss of peripheral vision. Two-dimensional contrast-enhanced MRA neck performed using 10 cc Dotarem contrast. Comparison: None Visualized distal common carotid, carotid bulb, internal carotid, and external carotid arteries are normal in course and caliber bilaterally. No critical stenosis or obstruction. Vertebral arteries are bilaterally symmetric and normal in MRA appearance. Impression: Negative MRA neck with contrast exam.
--- NOTE | 2021-03-18 12:57 | ECHO ---
DATE OF PROCEDURE: 03/18/2021 CLINICAL INFORMATION: CVA. The M-mode 2D, and Doppler echocardiogram including color flow Doppler shows the left ventricle is normal in size at 3.9 cm. There is no thrombus present. The septal wall thickness is 1.0 cm. The left ventricular posterior wall thickness is 1.0 cm. There is normal contractility of the left ventricle. The ejection fraction is calculated to be 69%. The mitral valve E/A inflow velocity ratio is decreased at 0.9 consistent with possible impaired left ventricular relaxation. The right ventricle is normal. The left atrium is normal in size at 2.1 cm. The interatrial septum is intact. The right atrium is normal. The aortic valve opens well. There is no aortic regurgitation. There is mitral valve leaflet thickening associated with a trace amount of mitral regurgitation. There is mild tricuspid regurgitation. The right ventricular systolic pressure is calculated to be elevated at 35 mm of Mercury. The pulmonic valve is not well visualized. The aortic root is normal at 3.2 cm. There is no pericardial effusion present. IMPRESSION: 1) NORMAL CONTRACTILITY OF THE LEFT VENTRICLE. 2) POSSIBLE IMPAIRED LEFT VENTRICULAR RELAXATION. 3) MILD TRICUSPID REGURGITATION. 4) MILD PULMONARY HYPERTENSION. 5) TRACE AMOUNT OF MITRAL REGURGITATION.
[2021-03-18 16:09] LABS: ANION GAP 11.9 MEQ/L (5-15); BLOOD UREA NITROGEN 18 mg/dL (7-17); CHLORIDE 103 mmol/L (98-107); Calcium 8.9 mg/dL (8.4-10.2); Carbon Dioxide 24 mmol/L (22-30); EST GLOMERULAR FILTRATION RATE > 60.0 ML/MIN; Glucose 375 mg/dL (74-106); Potassium 4.1 mmol/L (3.5-5.1); SODIUM 135 mmol/L (137-145)
[2021-03-18] MEDS: ROCEPHIN 1 Gm-D5w 50 ml Bag** 1 G/50 ML IVPB IV SCH (21:17)
[2021-03-19 05:22] LABS: Absolute Neutrophil Ct (ANC) 3.76 (1.4-6.9); BASOPHIL % 0.7 % (0.0-0.4); Basophil (Absolute #) 0.05 (0-0.4); Eosinophil % 5.1 % (0.00-5.0); Eosinophil (Absolute #) 0.35 (0-0.5); Hematocrit 39.7 % (35-47); Lymphocyte (Absolute #) 1.99 (1.0-4.6); Mean Cell Volume 91.9 fl (78-100); Mean Corpuscular Hemoglobin 30.1 pg (26-32); Mean Corpuscular Hgb Concent. 32.7 g/dl (32-36); Mean Platelet Volume 10.2 fl (7.5-11.0); Monocyte (Absolute #) 0.72 (0.0-1.3); Monocytes % 10.5 % (0.0-12.0); Neutrophil % 54.7 % (36.0-66.0); Platelet Count 257 K/mm3 (150-450); Red Blood Count 4.32 M/mm3 (4.1-5.4); Red Cell Distribution Width 13.4 % (11.5-14.0); White Blood Count 6.9 K/mm3 (4.0-10.5)
[2021-03-19 06:01] LABS: ANION GAP 11.5 MEQ/L (5-15); BLOOD UREA NITROGEN 11 mg/dL (7-17); CHLORIDE 106 mmol/L (98-107); Calcium 8.7 mg/dL (8.4-10.2); Carbon Dioxide 22 mmol/L (22-30); EST GLOMERULAR FILTRATION RATE > 60.0 ML/MIN; Glucose 126 mg/dL (74-106); MAGNESIUM 1.6 mg/dL (1.6-2.3); Potassium 3.6 mmol/L (3.5-5.1); SODIUM 136 mmol/L (137-145)
[2021-03-19] MEDS: Sodium Chloride 0.9% 1000 ML 1,000 ML IV SCH (07:37)
--- NOTE | 2021-03-19 08:01 | PCM.NOTE ---
Date and Time: 03/19/21 0759 Subjective Assessment: patient is much more clear in her thinking and feeling better, she states she is able to text much better! Objective Exam General Appearance: no apparent distress, alert Neurologic Exam: alert, oriented x 3, cooperative, normal mood/affect, nml cerebellar function, sensation nml, No motor deficits Respiratory Exam: normal breath sounds, lungs clear, No respiratory distress Cardiovascular Exam: regular rate/rhythm, normal heart sounds Gastrointestinal/Abdomen Exam: soft, No tenderness, No mass OBJECTIVE DATA Vital Signs: Vital Signs - 24 hr Temp Pulse Resp BP Pulse Ox 03/19/21 04:00 97.3 F 80 18 163/72 96 03/19/21 00:00 97.5 F 82 18 139/65 97 03/18/21 20:00 97.7 F 82 17 116/56 97 03/18/21 16:00 97.5 F 84 18 148/55 98 03/18/21 12:00 97.8 F 88 16 145/65 97 Pain Assessment - Last Documented Pain Intensity 0 Intake and Output: Intake & Output 03/16/21 03/17/21 03/18/21 03/19/21 11:59 11:59 11:59 11:59 Intake Total 2341 3610 Balance 2341 3610 Weight 54.5 kg Lab Results: Lab Results-Last 24 Hours 03/18/21 03/18/21 03/18/21 Range/Units 05:00 08:01 12:47 WBC (4.0-10.5) K/mm3 RBC (4.1-5.4) M/mm3 Hgb (12.0-16.0) gm/dl Hct (35-47) % MCV (78-100) fl MCH (26-32) pg MCHC (32-36) g/dl RDW (11.5-14.0) % Plt Count (150-450) K/mm3 MPV (7.5-11.0) fl Gran % (36.0-66.0) % Eos # (Auto) (0-0.5) Absolute Lymphs (auto) (1.0-4.6) Absolute Monos (auto) (0.0-1.3) Lymphocytes % (24.0-44.0) % Monocytes % (0.0-12.0) % Eosinophils % (0.00-5.0) % Basophils % (0.0-0.4) % Absolute Granulocytes (1.4-6.9) Basophils # (0-0.4) Sodium (137-145) mmol/L Potassium (3.5-5.1) mmol/L Chloride (98-107) mmol/L Carbon Dioxide (22-30) mmol/L Anion Gap (5-15) MEQ/L BUN (7-17) mg/dL Creatinine (0.52-1.04) mg/dL Estimated GFR ML/MIN Glucose (74-106) mg/dL POC Glucometer 124 H 236 H (74 to 106) mg/dL Calcium (8.4-10.2) mg/dL Magnesium (1.6-2.3) mg/dL Triglycerides 148 (30-150) mg/dL Cholesterol 233 H (50-200) mg/dL LDL Cholesterol 135 H (30-100) mg/dL HDL Cholesterol 59 (40-60) mg/dL Heart Disease Risk Ratio 4.0 03/18/21 03/18/21 03/18/21 Range/Units 14:10 15:54 16:32 WBC (4.0-10.5) K/mm3 RBC (4.1-5.4) M/mm3 Hgb (12.0-16.0) gm/dl Hct (35-47) % MCV (78-100) fl MCH (26-32) pg MCHC (32-36) g/dl RDW (11.5-14.0) % Plt Count (150-450) K/mm3 MPV (7.5-11.0) fl Gran % (36.0-66.0) % Eos # (Auto) (0-0.5) Absolute Lymphs (auto) (1.0-4.6) Absolute Monos (auto) (0.0-1.3) Lymphocytes % (24.0-44.0) % Monocytes % (0.0-12.0) % Eosinophils % (0.00-5.0) % Basophils % (0.0-0.4) % Absolute Granulocytes (1.4-6.9) Basophils # (0-0.4) Sodium 135 L (137-145) mmol/L Potassium 4.1 (3.5-5.1) mmol/L Chloride 103 (98-107) mmol/L Carbon Dioxide 24 (22-30) mmol/L Anion Gap 11.9 (5-15) MEQ/L BUN 18 H (7-17) mg/dL Creatinine 0.70 (0.52-1.04) mg/dL Estimated GFR > 60.0 ML/MIN Glucose 375 H (74-106) mg/dL POC Glucometer 451 H 317 H (74 to 106) mg/dL Calcium 8.9 (8.4-10.2) mg/dL Magnesium (1.6-2.3) mg/dL Triglycerides (30-150) mg/dL Cholesterol (50-200) mg/dL LDL Cholesterol (30-100) mg/dL HDL Cholesterol (40-60) mg/dL Heart Disease Risk Ratio 03/18/21 03/19/21 03/19/21 Range/Units 20:25 04:30 04:30 WBC 6.9 (4.0-10.5) K/mm3 RBC 4.32 (4.1-5.4) M/mm3 Hgb 13.0 (12.0-16.0) gm/dl Hct 39.7 (35-47) % MCV 91.9 (78-100) fl MCH 30.1 (26-32) pg MCHC 32.7 (32-36) g/dl RDW 13.4 (11.5-14.0) % Plt Count 257 (150-450) K/mm3 MPV 10.2 (7.5-11.0) fl Gran % 54.7 (36.0-66.0) % Eos # (Auto) 0.35 (0-0.5) Absolute Lymphs (auto) 1.99 (1.0-4.6) Absolute Monos (auto) 0.72 (0.0-1.3) Lymphocytes % 29.0 (24.0-44.0) % Monocytes % 10.5 (0.0-12.0) % Eosinophils % 5.1 H (0.00-5.0) % Basophils % 0.7 (0.0-0.4) % Absolute Granulocytes 3.76 (1.4-6.9) Basophils # 0.05 (0-0.4) Sodium 136 L (137-145) mmol/L Potassium 3.6 (3.5-5.1) mmol/L Chloride 106 (98-107) mmol/L Carbon Dioxide 22 (22-30) mmol/L Anion Gap 11.5 (5-15) MEQ/L BUN 11 (7-17) mg/dL Creatinine 0.50 L (0.52-1.04) mg/dL Estimated GFR > 60.0 ML/MIN Glucose 126 H (74-106) mg/dL POC Glucometer 275 H (74 to 106) mg/dL Calcium 8.7 (8.4-10.2) mg/dL Magnesium 1.6 (1.6-2.3) mg/dL Triglycerides (30-150) mg/dL Cholesterol (50-200) mg/dL LDL Cholesterol (30-100) mg/dL HDL Cholesterol (40-60) mg/dL Heart Disease Risk Ratio 03/19/21 Range/Units 07:03 WBC (4.0-10.5) K/mm3 RBC (4.1-5.4) M/mm3 Hgb (12.0-16.0) gm/dl Hct (35-47) % MCV (78-100) fl MCH (26-32) pg MCHC (32-36) g/dl RDW (11.5-14.0) % Plt Count (150-450) K/mm3 MPV (7.5-11.0) fl Gran % (36.0-66.0) % Eos # (Auto) (0-0.5) Absolute Lymphs (auto) (1.0-4.6) Absolute Monos (auto) (0.0-1.3) Lymphocytes % (24.0-44.0) % Monocytes % (0.0-12.0) % Eosinophils % (0.00-5.0) % Basophils % (0.0-0.4) % Absolute Granulocytes (1.4-6.9) Basophils # (0-0.4) Sodium (137-145) mmol/L Potassium (3.5-5.1) mmol/L Chloride (98-107) mmol/L Carbon Dioxide (22-30) mmol/L Anion Gap (5-15) MEQ/L BUN (7-17) mg/dL Creatinine (0.52-1.04) mg/dL Estimated GFR ML/MIN Glucose (74-106) mg/dL POC Glucometer 242 H (74 to 106) mg/dL Calcium (8.4-10.2) mg/dL Magnesium (1.6-2.3) mg/dL Triglycerides (30-150) mg/dL Cholesterol (50-200) mg/dL LDL Cholesterol (30-100) mg/dL HDL Cholesterol (40-60) mg/dL Heart Disease Risk Ratio Radiology Exams: Radiology Procedures Category Date Time Status ECHO W/2D AND DOPPLER [US] Routine Exams 03/18/21 Draft HEAD WITHOUT CONTRAST [CT] Stat Exams 03/17/21 13:34 Completed MRA BRAIN WITHOUT CONTRAST [MRI] Routine Exams 03/18/21 07:41 Completed MRA NECK WITH CONTRAST [MRI] Routine Exams 03/18/21 07:41 Completed MRI BRAIN W/O CONTRAST [MRI] Routine Exams 03/18/21 07:42 Completed Assessment/Plan (1) UTI (urinary tract infection) Current Visit: Yes Status: Acute Assessment & Plan: culture pending, clinically improved on rocephin Code(s): N39.0 - URINARY TRACT INFECTION, SITE NOT SPECIFIED (2) Headache Current Visit: Yes Status: Acute Assessment & Plan: MRI/MRA negative Code(s): R51.9 - HEADACHE, UNSPECIFIED (3) Altered mental status Current Visit: Yes Status: Acute Assessment & Plan: likely secondary to UTI and early acidosis from uncontrolled type 1 diabetes as she has improved with treatment of these problems. EEG pending to r/o seizure or diffuse slowing, if normal home when urine culture results avaiable. Code(s): R41.82 - ALTERED MENTAL STATUS, UNSPECIFIED (4) Hyperglycemia Current Visit: Yes Status: Acute Code(s): R73.9 - HYPERGLYCEMIA, UNSPECIFIED
[2021-03-19] MEDS: Lantus Insulin SQ SCH (08:06)
[2021-03-19] MEDS: HUMALOG SQ PRN ×4 (09:23→22:11)
[2021-03-19] MEDS: Ranexa 500 MG PO SCH ×2 (09:24→22:13)
[2021-03-19] MEDS: ECOTRIN 81 MG PO SCH (09:24)
[2021-03-19] MEDS: Toprol-Xl 25MG Tablets PO SCH (09:24)
[2021-03-19] MEDS: PLAVIX 75 MG Tablet PO SCH (09:24)
[2021-03-19] MEDS: ZOCOR 20MG PO SCH (09:25)
[2021-03-19] MEDS: ROCEPHIN 1 Gm-D5w 50 ml Bag** 1 G/50 ML IVPB IV SCH (22:02)
[2021-03-20 07:10] VITALS: BP 152/70; PULSE 75; O2SAT 97
[2021-03-20] MEDS: HUMALOG SQ PRN (07:38)
[2021-03-20] MEDS: Lantus Insulin SQ SCH (07:40)
--- NOTE | 2021-03-20 07:48 | PCM.DS ---
Discharge Summary Date of Admission: 03/17/21 19:56 Admitting Physician: DELORIS ESTES Consults: Consults on Case 03/17/21 16:41 Tele-Health Consult ROUTINE Allergies Allergies No Known Drug Allergies Allergy (Verified 03/17/21 13:33) Hospital Summary - Hospital Course Hospital Course: patient came with confusion, altered mentation and there was concern for cva, workup was negative. found to have UTI, also has insulin pump but didn't bring it, had hyperglycemia and mild acidosis which has resolved. her mental status has normalized and she is much more clear, EEG showed mild diffusion slowing c/w metabolic/infectious process. no focal discharges. - Vitals & Intake/Output Vital Signs: Vital Signs Temperature 97.5 F 03/20/21 07:09 Pulse Rate 75 03/20/21 07:09 Respiratory Rate 16 03/20/21 07:09 Blood Pressure 152/70 03/20/21 07:09 O2 Sat by Pulse Oximetry 97 03/20/21 07:09 Intake & Output: Intake & Output 03/17/21 03/18/21 03/19/21 03/20/21 11:59 11:59 11:59 11:59 Intake Total 2341 3850 1780 Balance 2341 3850 1780 Weight 54.5 kg - Lab Result Diagrams: 03/19/21 04:30 03/19/21 04:30 Lab Results-Last 24 Hrs: Lab Results-Last 24 Hours 03/17/21 03/19/21 03/19/21 Range/Units 15:15 11:48 16:29 POC Glucometer 312 H 230 H (74 to 106) mg/dL Urine Opiates Level NEGATIVE (NEGATIVE) Ur Methadone NEGATIVE (NEGATIVE) Urine Barbiturates NEGATIVE (NEGATIVE) Ur Phencyclidine (PCP) NEGATIVE (NEGATIVE) Urine Amphetamine NEGATIVE (NEGATIVE) U Benzodiazepine Level NEGATIVE (NEGATIVE) Urine Cocaine NEGATIVE (NEGATIVE) Urine Marijuana (THC) NEGATIVE (NEGATIVE) 03/19/21 03/20/21 Range/Units 20:27 06:51 POC Glucometer 202 H 262 H (74 to 106) mg/dL Urine Opiates Level (NEGATIVE) Ur Methadone (NEGATIVE) Urine Barbiturates (NEGATIVE) Ur Phencyclidine (PCP) (NEGATIVE) Urine Amphetamine (NEGATIVE) U Benzodiazepine Level (NEGATIVE) Urine Cocaine (NEGATIVE) Urine Marijuana (THC) (NEGATIVE) Micro Results-Entire Visit: Microbiology 03/17/21 15:15 Urine Culture - Final Clean Catch Midstream Escherichia Coli Accuchecks Date 03/20/21 Date 03/19/21 Date 03/19/21 Date 03/19/21 Time 06:51 Time 22:00 Time 04:30 Time 11:50 - Radiology Exams Ordered Rad Exams-Entire Visit: Radiology Procedures Category Date Time Status MRA BRAIN WITHOUT CONTRAST [MRI] Routine Exams 03/18/21 07:41 Completed MRA NECK WITH CONTRAST [MRI] Routine Exams 03/18/21 07:41 Completed MRI BRAIN W/O CONTRAST [MRI] Routine Exams 03/18/21 07:42 Completed - Procedures and Test Procedures and Tests throughout Hospitalization: Therapy Orders & Screens 03/18/21 14:27 EEG 41-60 Minutes (Normal) ONCE Comment: Reason For Exam: AMS, r/o metabolic/encephalopathy Diagnosis: Migraine, Memory Changes. Discharge Exam General Appearance: no apparent distress Respiratory Exam: normal breath sounds, lungs clear, No respiratory distress Cardiovascular Exam: regular rate/rhythm, normal heart sounds Gastrointestinal/Abdomen Exam: soft, No tenderness, No mass Extremity Exam: normal inspection, normal range of motion Skin Exam: normal color, warm, dry Final Diagnosis/Problem List - Final Discharge Diagnosis/Problem (1) UTI (urinary tract infection) Current Visit: Yes Status: Acute Assessment & Plan: ohara-sensitive e coli Code(s): N39.0 - URINARY TRACT INFECTION, SITE NOT SPECIFIED (2) Altered mental status Current Visit: Yes Status: Acute Assessment & Plan: secondary to UTI and mild acidosis, resolved Code(s): R41.82 - ALTERED MENTAL STATUS, UNSPECIFIED (3) Hyperglycemia Current Visit: Yes Status: Acute Code(s): R73.9 - HYPERGLYCEMIA, UNSPECIFIED (4) Type 1 diabetes mellitus Current Visit: Yes Status: Acute Assessment & Plan: refer to Dr Hernandez disability counselor in [place] on discharge. has pump and all supplies at home - Discharge Disposition: Home, Self-Care Condition: Stable Prescriptions: New Smz/Tmp Ds Tablet [Bactrim Ds Tablet] 1 tab PO Q12H #14 tablet Continue Aspirin 81 gm Chew [Baby Aspirin 81 mg Chew] 81 mg PO DAILY Atorvastatin Calcium 80 mg PO DAILY Clopidogrel Bisulfate 75 mg [PLAVIX 75 MG Tablet] 75 mg PO DAILY Evolocumab [Repatha Sureclick] 140 mg SQ Q14D Metoprolol Succinate 25 mg Xl* [Toprol-Xl 25MG Tablets] 12.5 mg PO DAILY Discontinued Ranolazine [Ranolazine ER] 1,000 mg PO BID Follow up with: DELORIS ESTES MD [ACTIVE STAFF] - 1 Week ITALO HERNANDEZ [NON-STAFF PHY W/O PRIVILEGES] - Call for Appointment (type 1 kwas[employer] infante, insulin pump)
== END 2021-03-20 09:36 | disposition home or self-care (01) ==
LOC: ED 13:07 → MED SURG 19:56
PROVIDERS: ADMIT Family Medicine; ATTEND Family Medicine
DX: N39.0 Urinary tract infection, site not specified (principal); R51.9 Headache, unspecified; R41.82 Altered mental status, unspecified; E10.65 Type 1 diabetes mellitus with hyperglycemia; R53.83 Other fatigue; I10 Essential (primary) hypertension; E87.1 Hypo-osmolality and hyponatremia; H53.9 Unspecified visual disturbance; Z79.899 Other long term (current) drug therapy; Z79.01 Long term (current) use of anticoagulants; Z79.4 Long term (current) use of insulin; Z20.822 Contact with and (suspected) exposure to COVID-19
CPT/HCPCS: 36000; 36415; 70450; 70544; 70548; 70551; 80048; 80053; 80061; 80307; 81001; 82947; 83721; 83735; 84443; 84484; 85025; 87077; 87086; 87186; 93005; 93041; 93268; 93306; 94760; 95812; 96372; 99285; G0378; G0480; U0003; J0696; J1815; J1817; A9270-GY

== ENCOUNTER 2021-06-21 12:24 | Emergency (ER) | payer OTHER ==
[2021-06-21 13:51] VITALS: BP 123/60; PULSE 91; O2SAT 99
--- NOTE | 2021-06-21 14:24 | XRAY ---
Indication: 5th toe pain and bruising following injury one week ago. Comparison: None 3 nonweightbearing views right foot demonstrates mild osteopenia, mild 1st IP degenerative changes, tiny distal great toe bone island, and tiny plantar heel spur. No other bony, articular, or soft tissue abnormalities.
--- NOTE | 2021-06-21 14:38 | ERPHSYRPT ---
- History of Present Illness Time Seen by Provider: 06/21/21 14:55 Source: patient Exam Limitations: no limitations Patient Subjective Stated Complaint: Toe injury Triage Nursing Assessment: Patient ambulated back to ED and transfered self to bed. Patient A+O x3. Patient's skin pink, warm and dry. Patient complains of right foot, 5th digit pain after stubbing her toe one week ago. Patient's right toe, 5th digit noted to be bruised and swollen .Patient complains of pain 5/10. Physician History: Patient is a 55-year-old female presents to our ED with bruising to her right small toe. Patient stubbed her toe 1 week ago. Patient took [id number] analgesics but states the symptoms have not improved. Pain described as an ache that is localized. No radiation. Pain worse with weightbearing pain improved with rest. No other injuries reported. Symptoms are mild to moderate in intensity. Palpation and ambulation reproduce symptoms. Patient voices no other complaints concerns at this time. Method of Injury: other (Stop note) Occurred: last week Quality: constant Severity of Pain-Max: moderate Severity of Pain-Current: mild Lower Extremities Pain: 5th toe: right Modifying Factors: Improves With: movement Associated Symptoms: none Allergies/Adverse Reactions: No Known Drug Allergies Allergy (Verified 06/21/21 13:45) Home Medications: Aspirin 81 gm Chew [Baby Aspirin 81 mg Chew] 81 mg PO DAILY 01/18/19 [History] Atorvastatin Calcium 80 mg PO DAILY 01/31/20 [History] Clopidogrel Bisulfate 75 mg [PLAVIX 75 MG Tablet] 75 mg PO DAILY 06/24/20 [History] Evolocumab [Repatha Sureclick] 140 mg SQ Q14D 03/17/21 [History] Metoprolol Succinate 25 mg Xl* [Toprol-Xl 25MG Tablets] 12.5 mg PO DAILY 03/17/21 [History] Hx Tetanus, Diphtheria Vaccination/Date Given: Yes Hx Influenza Vaccination/Date Given: No Hx Pneumococcal Vaccination/Date Given: Yes Immunizations Up to Date: Yes Travel Risk - International Travel Have you traveled outside of the country in past 3 weeks: No - Coronavirus Screening Are you exhibiting any of the following symptoms?: No Close contact with a COVID-19 positive Pt in past 14-21 Days: No - Vaccine Status Have you recieved a Covid-19 vaccination: Yes [employer]: [employer] - Review of Systems Constitutional: No Symptoms, No Fever, No Chills Eyes: No Symptoms Ears, Nose, & Throat: No Symptoms Respiratory: No Symptoms, No Cough, No Dyspnea Cardiac: No Symptoms, No Chest Pain, No Edema, No Syncope Abdominal/Gastrointestinal: No Symptoms, No Abdominal Pain, No Nausea, No Vomiting, No Diarrhea Genitourinary Symptoms: No Symptoms, No Dysuria Musculoskeletal: No Symptoms, No Back Pain, No Neck Pain Skin: No Symptoms, No Rash Neurological: No Symptoms, No Dizziness, No Focal Weakness, No Sensory Changes Psychological: No Symptoms Endocrine: No Symptoms Hematologic/Lymphatic: No Symptoms Immunological/Allergic: No Symptoms All Other Systems: Reviewed and Negative - Past Medical History Pertinent Past Medical History: Yes Neurological History: No Pertinent History ENT History: Cataracts Cardiac History: Coronary Artery Disease, High Cholesterol, Hypertension, Myocardial Infarction (GA) Respiratory History: No Pertinent History Endocrine Medical History: Diabetes Type I Musculoskeletal History: No Pertinent History GI Medical History: No Pertinent History History: No Pertinent History Psycho-Social History: Anxiety, Depression, Eating Disorders Female Reproductive Disorders: No Pertinent History Other Medical History: 8 cardiac stents stents, 6 MIs - September 2019. Total 11 GA. 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 - Past Surgical History Past Surgical History: Yes Neuro Surgical History: No Pertinent History Cardiac: Cardiac Catheterization, Cardiac Stent Respiratory: No Pertinent History Gastrointestinal: No Pertinent History Genitourinary: No Pertinent History Musculoskeletal: No Pertinent History Female Surgical History: Hysterectomy, Section - Social History Smoking Status: Current every day smoker How long have you smoked: 25 years Exposure to second hand smoke: No Drug Use: none Patient Lives Alone: No - Nursing Vital Signs Nursing Vital Signs: Initial Vital Signs Temperature 98.2 F 06/21/21 13:46 Pulse Rate 91 H 06/21/21 13:46 Respiratory Rate 18 06/21/21 13:46 Blood Pressure 123/60 06/21/21 13:46 O2 Sat by Pulse Oximetry 99 06/21/21 13:46 Pain Scale Pain Intensity 5 - Physical Exam General Appearance: no apparent distress, alert Eyes, Ears, Nose, Throat Exam: normal ENT inspection, TMs normal, pharynx normal, moist mucous membranes Neck Exam: normal inspection, non-tender, supple, full range of motion Cardiovascular/Respiratory Exam: chest non-tender, normal breath sounds, regular rate/rhythm, heart sounds normal, no respiratory distress Gastrointestinal/Abdominal Exam: non-tender, soft, guarding Back Exam: normal inspection, No vertebral tenderness Hips Exam: bilateral: non-tender, normal inspection, normal range of motion, no evidence of injury Legs Exam: bilateral leg: non-tender, normal inspection, normal range of motion, no evidence of injury Knees Exam: bilateral knee: non-tender, normal inspection, normal range of motion, no evidence of injury Ankle Exam: bilateral ankle: non-tender, normal inspection, normal range of motion, no evidence of injury Foot Exam: right foot: other (Right digit has ecchymosis.), bilateral foot: non- tender, normal inspection, normal range of motion, no evidence of injury Neuro/Tendon Exam: normal sensation, normal motor functions Mental Status Exam: alert, oriented x 3, cooperative Skin Exam: normal color, warm, dry SpO2: 99 O2 Delivery: Room Air - Course Nursing assessment & vital signs reviewed: Yes - Radiology Exams Foot X-ray Interpretation: Teleradiologist Report (X-ray shows osteopenia degenerative changes bone island and heel spur. No fracture dislocations or soft tissue abnormalities.) Ordered Tests: Active Orders 24 hr Category Date Time Status FOOT (MINIMUM 3 VIEWS) Stat Exams 06/21/21 13:51 Completed Medication Summary Generic Name Dose Route Start Last Admin Trade Name Junaid PRN Reason Stop Dose Admin Acetaminophen 975 mg 06/21/21 14:59 Acetaminophen 325 Mg Tablet PO 06/21/21 15:00 STAT ONE - Progress Progress: improved Progress Note: Patient reassessed. She feels well. Tylenol administered for pain. Crutches provided. Patient received a referral to podiatry clinic. Patient states is ready for discharge. A work note was provided. Patient voices no other complaints or concerns at this time. Patient agrees to follow-up with podiatry tomorrow as scheduled. Portions of this note were created with voice recognition technology. There may be grammatical, spelling, punctuation or sound alike errors 06/21/21 15:05 Counseled pt/family regarding: diagnosis, need for follow-up, rad results - Departure Departure Disposition: Home Clinical Impression: Toe contusion, Osteopenia, Degenerative arthritis, Bone island, Heel spur Condition: Stable Critical Care Time: No Referrals: DELORIS ESTES MD [Primary Care Provider] - Follow up/PCP as directed Instructions: Toe Injury (DC) Additional Instructions: Discharge/Care Plan LILIANA MATTSON was seen on 06/21/21 in the Emergency Room. The patient was counseled regarding Diagnosis,Lab results, Imaging studies, need for follow up and when to return to the Emergency Room. Prescriptions given: Discharge Note I have spoken with the patient and/or caregivers. I have explained the patient's condition, diagnosis and treatment plan based on the information available to me at this time. I have answered the patient's and/or caregiver's questions and addressed any concerns. The patient and/or caregivers have as good understanding of the patient's diagnosis, condition and treatment plan as can be expected at this point. The vital signs have been stable. The patient's condition is stable and appropriate for discharge from the emergency department. The patient will pursue further outpatient evaluation with the primary care physician or other designated or consulting physician as outlined in the discharge instructions. The patient and/or caregivers are agreeable to this plan of care and follow-up instructions have been explained in detail. The patient and/or caregivers have received these instruction. The patient/and or caregivers are aware that any significant change in condition or worsening of symptoms should prompt an immediate return to this or the closest emergency department or call 911. Outpatient Orders: Podiatry Referral Time Frame: 1 Day, Facility: [facility]. Hosp, Location: [facility]
[2021-06-21] MEDS ORDERED: TYLENOL 325 MG PO ONE (14:59)
[2021-06-21] MEDS ORDERED: TYLENOL 325 MG ONE (15:04)
== END 2021-06-21 15:11 | disposition home or self-care (01) ==
LOC: ED 12:24
DX: S90.121A Contusion of right lesser toe(s) without damage to nail, initial encounter (principal); M85.871 Other specified disorders of bone density and structure, right ankle and foot; M19.071 Primary osteoarthritis, right ankle and foot; M89.8X7 Other specified disorders of bone, ankle and foot; M77.31 Calcaneal spur, right foot; E10.9 Type 1 diabetes mellitus without complications; I25.10 Atherosclerotic heart disease of native coronary artery without angina pectoris; I25.2 Old myocardial infarction; I10 Essential (primary) hypertension; Z95.5 Presence of coronary angioplasty implant and graft; Z72.0 Tobacco use; E78.5 Hyperlipidemia, unspecified; Z79.01 Long term (current) use of anticoagulants; Z79.899 Other long term (current) drug therapy
CPT/HCPCS: 73630; 99283; A9270-GY

== ENCOUNTER 2021-07-09 12:27 | Emergency (ER) | payer OTHER ==
--- NOTE | 2021-07-09 12:37 | ERPHSYRPT ---
- History of Present Illness Time Seen by Provider: 07/09/21 12:37 Source: patient Exam Limitations: no limitations Physician History: This is a 55-year-old white female patient of Dr. Argueta who had an injury to her right small toe back in approximately mid May 2021. Patient has a history of coronary artery disease on Plavix, diabetes, hypertension and elevated cholesterol. Patient continues to smoke cigarettes. The x-ray on 06/21/2021 that was obtained through the emergency department showed no evidence of fracture or dislocation. The pain and bruising persisted in her toe on the right side therefore she was referred to Dr. Alonzo in our podiatry clinic. She has seen Dr. Alonzo on 06/22/2021, 06/28/2021 and 07/06/2021. On 06/28/2021 she was found to have a left DUANE that was within normal limits and a right DUANE that showed moderate ischemia. On 07/06/2021 patient underwent a CTA of the abdomen with leg runoff. In addressing just the right side, the right leg runoff shows moderate scattered arterial sclerotic disease with focal stenosis of the distal common femoral and origin of superficial femoral arteries. There is high-grade popliteal arterial stenosis on the right side. Distally, there is greater arterial sclerotic disease with an occluded superficial femoral artery. There is three-vessel runoff into the right foot. Patient's complaint today is pain. She has an appointment to see Dr. Merritt in [facility] on 07/12/2021. Method of Injury: direct blow Occurred: other (Initial injury was approximately 4 weeks ago) Quality: constant, throbbing Severity of Pain-Max: moderate Severity of Pain-Current: moderate Lower Extremities Pain: foot: right, 5th toe: right Modifying Factors: Improves With: movement, other (Hurts to palpation) Associated Symptoms: other (To ambulate) Allergies/Adverse Reactions: No Known Drug Allergies Allergy (Verified 07/09/21 12:55) Home Medications: Aspirin 81 gm Chew [Baby Aspirin 81 mg Chew] 81 mg PO DAILY 01/18/19 [History] Atorvastatin Calcium 80 mg PO DAILY 01/31/20 [History] Clopidogrel Bisulfate 75 mg [PLAVIX 75 MG Tablet] 75 mg PO DAILY 06/24/20 [History] Metoprolol Succinate 25 mg Xl* [Toprol-Xl 25MG Tablets] 12.5 mg PO DAILY 03/17/21 [History] Insulin Glargine,Hum.rec.anlog [Basaglar Kwikpen U-100] 29 unit SQ DAILY 07/09/21 [History] Insulin Lispro [Admelog] 1 unit SQ UD 07/09/21 [History] Hx Tetanus, Diphtheria Vaccination/Date Given: Yes Hx Influenza Vaccination/Date Given: No Hx Pneumococcal Vaccination/Date Given: Yes Travel Risk - International Travel Have you traveled outside of the country in past 3 weeks: No - Coronavirus Screening Are you exhibiting any of the following symptoms?: No Close contact with a COVID-19 positive Pt in past 14-21 Days: No - Vaccine Status Have you recieved a Covid-19 vaccination: Yes Warehouse Handler: [employer] - Review of Systems Constitutional: No Symptoms Eyes: No Symptoms Ears, Nose, & Throat: No Symptoms Respiratory: No Symptoms Cardiac: No Symptoms Abdominal/Gastrointestinal: No Symptoms Genitourinary Symptoms: No Symptoms Musculoskeletal: Other (Pain dorsal aspect right foot.) Skin: Other (Painful, ecchymotic swollen right fifth toe) Neurological: No Symptoms Psychological: No Symptoms Endocrine: No Symptoms Hematologic/Lymphatic: No Symptoms Immunological/Allergic: No Symptoms All Other Systems: Reviewed and Negative - Past Medical History Pertinent Past Medical History: Yes Neurological History: No Pertinent History ENT History: Cataracts Cardiac History: Coronary Artery Disease, High Cholesterol, Hypertension, Myocardial Infarction (MS) Respiratory History: No Pertinent History Endocrine Medical History: Diabetes Type I Musculoskeletal History: No Pertinent History GI Medical History: No Pertinent History History: No Pertinent History Psycho-Social History: Anxiety, Depression, Eating Disorders Female Reproductive Disorders: No Pertinent History Other Medical History: 8 cardiac stents stents, 6 MIs - September 2019. Total 11 MS. 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 - Past Surgical History Past Surgical History: Yes Neuro Surgical History: No Pertinent History Cardiac: Cardiac Catheterization, Cardiac Stent Respiratory: No Pertinent History Gastrointestinal: No Pertinent History Genitourinary: No Pertinent History Musculoskeletal: No Pertinent History Female Surgical History: Hysterectomy, Section - Social History Smoking Status: Current every day smoker How long have you smoked: 25 years Exposure to second hand smoke: No Drug Use: none Patient Lives Alone: No - Nursing Vital Signs Nursing Vital Signs: Initial Vital Signs Temperature 98.9 F 02/11/22 12:31 Pulse Rate 83 07/09/21 12:31 Blood Pressure 193/74 07/09/21 12:31 O2 Sat by Pulse Oximetry 98 07/09/21 12:31 Pain Scale Pain Intensity 10 - Physical Exam General Appearance: mild distress, alert (To moderate), anxiety, thin Eyes, Ears, Nose, Throat Exam: normal ENT inspection, moist mucous membranes Neck Exam: normal inspection, non-tender, supple, full range of motion Cardiovascular/Respiratory Exam: chest non-tender, no respiratory distress Gastrointestinal/Abdominal Exam: non-tender Back Exam: normal inspection, normal range of motion, No CVA tenderness, No vertebral tenderness Hips Exam: bilateral: non-tender, normal inspection, normal range of motion, no evidence of injury Legs Exam: bilateral leg: non-tender, normal inspection, normal range of motion, no evidence of injury Knees Exam: bilateral knee: non-tender, normal inspection, normal range of motion, no evidence of injury Ankle Exam: bilateral ankle: non-tender, normal inspection, normal range of motion, no evidence of injury Foot Exam: right foot: bone tenderness (Fifth toe, dorsal aspect), ecchymosis (Fifth toe), pain (Fifth toe, dorsal aspect), soft tissue tenderness (Fifth toe, dorsal aspect), other (Dopplerable posterior tibial and dorsalis pedis pulses), left foot: non-tender, normal inspection, normal range of motion, no evidence of injury Neuro/Tendon Exam: normal tendon functions, responds to pain, no evidence tendon injury Mental Status Exam: alert, oriented x 3, cooperative Skin Exam: normal color, warm, dry SpO2 Interpretation: normal - Course Nursing assessment & vital signs reviewed: Yes - Progress Progress: improved, pain not gone completely Progress Note: 07/09/21 13:04 Medical decision making: This patient has clinical evidence and radiographic evidence of moderate ischemia to the right lower extremity. She has significant peripheral vascular disease and a level of ischemia that is causing pain. I do not believe it is necessary for her to be emergently transferred because she do es have recent radiographic evidence and clinical evidence of blood flow down into her right foot. There is no evidence of infection. Patient has an appointment to see a vascular surgeon/cardiovascular surgeon, Dr. Merritt [facility] on 07/12/2021. She needs better control of her pain. She is out of pain medication. We will give her injections today and write prescriptions for her to have pain control over the weekend. She was told that if her pain worsens or her condition worsens over the weekend, she can always come to our facility, however, she was made aware of the difficulty in transferring patients out of our facility and also she is aware we have no vascular surgeon here to intervene. Counseled pt/family regarding: diagnosis, need for follow-up - Departure Departure Disposition: Home Clinical Impression: Peripheral vascular disease of extremity, Ischemia of extremity, Pain of right lower extremity due to ischemia Condition: Stable Critical Care Time: No Referrals: DELORIS ARGUETA MD [Primary Care Provider] - Follow up/PCP as directed Additional Instructions: Keep your appointment with Dr. Merritt on 07/12/2021. If your symptoms worsen over the weekend, you can always come to our emergency department. Be aware that there are difficulties in transferring patients to other facilities where, in your case, you would need a vascular surgeon to intervene. You can go directly to the emergency department at the facility Dr. Merritt operates out of as well. Stop smoking. Forms: Work/School Release Form Prescriptions: Oxycodone HCl/Acetaminophen [Percocet 5-325 mg Tablet] 1 each PO Q8H PRN PRN #10 tablet MDD 3 PRN Reason: Moderate To Severe Pain
[2021-07-09 12:54] VITALS: BP 193/74; PULSE 83; O2SAT 98
[2021-07-09] MEDS ORDERED: Hydromorphone 1 mg/ml Injection IM ONE (13:17)
[2021-07-09] MEDS ORDERED: Ativan 2 MG/1 ML VIAL IM ONE (13:18)
[2021-07-09] MEDS ORDERED: ZOFRAN ODT 4 MG PO ONE (13:19)
[2021-07-09] MEDS ORDERED: Ativan 2 MG/1 ML VIAL ONE (13:22)
[2021-07-09] MEDS ORDERED: ZOFRAN ODT 4 MG ONE (13:22)
[2021-07-09] MEDS ORDERED: Zofran 4 MG/2 ML VIAL ONE (13:23)
[2021-07-09] MEDS ORDERED: Hydromorphone 1 mg/ml Injection ONE (13:23)
== END 2021-07-09 13:50 | disposition home or self-care (01) ==
LOC: ED 12:27
DX: I70.221 Atherosclerosis of native arteries of extremities with rest pain, right leg (principal); I25.10 Atherosclerotic heart disease of native coronary artery without angina pectoris; I10 Essential (primary) hypertension; E78.5 Hyperlipidemia, unspecified; E10.9 Type 1 diabetes mellitus without complications; Z79.4 Long term (current) use of insulin; Z79.01 Long term (current) use of anticoagulants; Z79.899 Other long term (current) drug therapy; I25.2 Old myocardial infarction; Z72.0 Tobacco use; Z79.891 Long term (current) use of opiate analgesic
CPT/HCPCS: 96372; 99284; J1170; J2060; J2405; Q0162

== ENCOUNTER 2021-09-10 10:41 | Day surgery (SDC) | payer OTHER ==
[~2021-09-10 10:41] MED LIST: BUPIVACAINE 0.5% VIAL IJ ONE; Lactated Ringers 1,000 ML IV ONE; Lactated Ringers 1,000 ML IV SCH; XYLOCAINE 1% HCL 20 ML MDV ONE
[2021-09-10] MEDS ORDERED: KEFZOL 1 GM/50 ML PREMIX** 1 GM/50 ML IVPB IV SCH (11:15)
[2021-09-10] MEDS ORDERED: Lactated Ringers 1,000 ML IV SCH (11:30)
[2021-09-10] MEDS ORDERED: KEFZOL 1 GM/50 ML PREMIX** 1 GM/50 ML IVPB IV ONE (11:50)
[2021-09-10] MEDS ORDERED: Lactated Ringers 1,000 ML IV ONE (11:51)
[2021-09-10] MEDS ORDERED: Versed 2 MG/2 ML Injection ONE ×2 (13:42→14:49)
[2021-09-10] MEDS ORDERED: Xylocaine-Mpf 2% 5 Ml Vial ONE (13:48)
[2021-09-10] MEDS ORDERED: SUBLIMAZE 100 MCG/2 ML ONE (13:48)
[2021-09-10] MEDS ORDERED: Versed 2 MG/2 ML Injection IV ONE (13:48)
[2021-09-10] MEDS ORDERED: DIPRIVAN 200 MG/20 ML IV ONE (13:48)
[2021-09-10] MEDS ORDERED: Ketamine HCl 50 MG/ML ONE (13:49)
[2021-09-10] MEDS ORDERED: XYLOCAINE 1% HCL 20 ML MDV ONE (15:01)
[2021-09-10 15:45] VITALS: O2SAT 99
[2021-09-10 16:11] VITALS: BP 157/73; PULSE 80
--- NOTE | 2021-09-13 13:07 | OP ---
SURGERY DATE/TIME: 09/10/2021 1449 PREOPERATIVE DIAGNOSES: 1) Peripheral angiography secondary to diabetes type I. 2) Peripheral vascular disease. 3) Dry gangrene. 4) Traumatic injury to soft tissue. 5) Right foot pain. POSTOPERATIVE DIAGNOSES: 1) Peripheral angiography secondary to diabetes type I. 2) Peripheral vascular disease. 3) Dry gangrene. 4) Traumatic injury to soft tissue. 5) Right foot pain. PROCEDURE: Amputation fifth toe right foot with disarticulation. SURGEON: Clinton Jackson DPM. COREMAKER SUPERVISOR: None. ANESTHESIA: MAC plus postoperative local. HEMOSTASIS: Pressure dressing. ESTIMATED BLOOD LOSS: Less than 3 cc. MATERIALS: 3-0 Nylon. INJECTABLES: 13 cc of 1:1 mixture of 1% lidocaine plain and 0.5% bupivacaine plain injected in a mini Jacobson-type fashion. INDICATION FOR SURGERY: Aimee Alejandra is an extremely pleasant 56-year-old female who was seen by me back in June for a traumatic injury where she stubbed her toe. The patient was concerned as the days proceeded there was a significant amount of pain to the digit which was unrelenting and increasing in pain as time had gone on. Due to the suspicious nature, that is a cigarette smoker and a diabetic type I with nonpalpable pulses, vascular studies were obtained and demonstrated significant restriction and obstruction of blood flow leading to her right lower extremity. At this time immediate referral to vascular surgery was made and Dr. Merritt performed a fem-pop bypass within several days of consultation. The patient presented following surgical intervention with palpable pulses at that time. However, after a certain period of time there was some demarcation of the digit resulting in some peripheral vascular disease and dry gangrene medial aspect of the digit. The patient was having extreme reperfusion pain and was unable to tolerate debridement as well as no improvement was seen over the course of one month from the procedure with limb salvage efforts. The patient was exhausted secondary to the pain and wished to proceed with amputation on previous visit. I am amenable to this due to the fact that she is in a significant amount of pain although I do believe after Dr. Merritt's efforts there is a possibility for limb salvage still at this point. The pain is still intolerable for this patient and I am happy to proceed at her wishes. The patient understands all risks, benefits and complications of the surgical intervention one of which particular interest to her and particular interest of her knowledge is that there is a possibility that further demarcation may as a result of surgical intervention and the trauma of the surgery itself. She understands this however the pain is so significant at this time she would like to proceed and see if she is able to be free of pain and heal this. She understands that if there is further demarcation this may mean further amputation. All of the risks such as infection, hematoma, seroma, possible delayed skin healing and nonskin healing was discussed with the patient. She understands all of this and still wishes to proceed. No guarantees were provided as to the outcome and it is with this we proceed. DESCRIPTION OF PROCEDURE AND FINDINGS: The patient was brought into the OR and placed and placed on the OR table in the supine position. Monitored anesthesia care was administered at this time until the patient was lightly sedated. The right lower extremity was then prepped and draped in the typical sterile fashion. A preoperative block consisting of 13 cc of 1:1 mixture of 1% lidocaine plain and 0.5% bupivacaine plain was injected in a mini Jacobson-type fashion to the right foot. At this time the surgical site was planned out utilizing marking pen. A lateral racket-type incision was planned. A 15 blade was then utilized to make an incision down to the bone around the fifth digit and down to the base at the articulation of the metatarsophalangeal joint. The joint was then resected in total and the toe as well as proximal phalanx was sent off for surgical pathology and handed off the field. At this time copious amounts of sterile saline were utilized to flush the surgical site. A 3-0 Nylon was then utilized to coapt the surgical skin edges. A dressing was applied to the right lower extremity consisting of Betadine, Adaptic, 4x4, Kerlix and a lightly applied JAVON. The patient handled the procedure without complication and was reversed from anesthesia at this time. The patient handled the procedure without complication and was returned to the postoperative anesthesia care unit with vital signs stable and vascular status intact. Postoperative orders as indicated in the patients discharge chart.
== END 2021-09-10 15:59 | disposition home or self-care (01) ==
LOC: SDC 10:41
PROVIDERS: ATTEND Podiatrist Foot & Ankle Surgery
DX: E10.52 Type 1 diabetes mellitus with diabetic peripheral angiopathy with gangrene (principal); I96 Gangrene, not elsewhere classified; M79.9 Soft tissue disorder, unspecified; M79.671 Pain in right foot
CPT/HCPCS: 28820; 82947; 93005; J0690; J2250; J2704; J3010

== ENCOUNTER 2022-05-17 06:41 | Day surgery (SDC) | payer OTHER ==
[2022-05-17] MEDS ORDERED: Lactated Ringers 1,000 ML IV ONE (07:01)
[2022-05-17 07:28] LABS: INR 0.94 (0.8-3.0)
[2022-05-17] MEDS ORDERED: Versed 2 MG/2 ML Injection IV ONE (07:53)
[2022-05-17] MEDS ORDERED: Versed 2 MG/2 ML Injection ONE (07:56)
[2022-05-17] MEDS ORDERED: Lactated Ringers 1,000 ML IV SCH (08:00)
[2022-05-17] MEDS ORDERED: BETADINE 5% OPHTHALMIC 30 ML OP ONE (08:00)
[2022-05-17] MEDS ORDERED: Ak-Dilate OPHTHALMIC*** 1.065 ML, Cyclogyl 1% OPHTH SOL 1.065 ML, GATIFLOXACIN 0.5% OPH... OP ONE ×4 (08:00)
[2022-05-17] MEDS ORDERED: TETRACAINE 0.5% STERI-UNIT SOL OP ONE ×2 (08:00)
[2022-05-17] MEDS ORDERED: NON-FORMULARY ITEM OP ONE (08:00)
[2022-05-17] MEDS ORDERED: cefUROXime sodium 0.005 GM in Sodium Chloride Flush 30 ML*** 0.5 ML IJ ONE (08:00)
[2022-05-17] MEDS ORDERED: Zofran 4 MG/2 ML VIAL IV PRN (09:00)
[2022-05-17] MEDS ORDERED: ACETAZOLAMIDE 250 MG TABLET PO ONE (09:00)
[2022-05-17] MEDS ORDERED: DIPRIVAN 200 MG/20 ML IV ONE (09:09)
[2022-05-17] MEDS ORDERED: Amidate 20 MG/10 ML IV ONE (09:09)
[2022-05-17] MEDS ORDERED: Xylocaine-Mpf 2% 5 Ml Vial ONE (09:09)
[2022-05-17 09:50] VITALS: O2SAT 97
[2022-05-17 09:51] VITALS: BP 147/74; PULSE 91
== END 2022-05-17 09:50 | disposition home or self-care (01) ==
LOC: SDC 06:41
PROVIDERS: ATTEND Ophthalmology
DX: H25.811 Combined forms of age-related cataract, right eye (principal); E11.9 Type 2 diabetes mellitus without complications; Z79.01 Long term (current) use of anticoagulants
CPT/HCPCS: 36415; 82947; 85610; C1780; J2250; J2704; A9270-GY